=== PATIENT | female | born 1970 | race Caucasian/White ===

== ENCOUNTER → 2018-05-04 07:30 | Outpatient (CLI) | payer MEDICAID, SELFPAY ==
[2018-05-04 08:15] LABS: Basophils # 0.1 K/mm3 (0-0.2); Basophils % 0.6 % (0.1-2.0); Eosinophils # 0.8 K/mm3 (0.0-0.4); Eosinophils % 8.4 % (0.1-12.0); Hemoglobin 15.6 g/dL (12.2-16.2); Lymphocytes # 3.3 K/mm3 (0.7-4.5); Lymphocytes % 34.5 K/mm3 (10-50); Mean Corpuscular HGB Conc 33.2 g/dL (31.8-35.4); Mean Corpuscular Hemoglobin 31.2 pg (27.0-31.2); Mean Corpuscular Volume 93.8 fl (81-99); Mean Platelet Volume 7.1 fl (7.4-10.4); Monocytes # 0.6 K/mm3 (0.1-1.0); Monocytes % 5.8 % (1.7-9.3); Neutrophils # 4.9 K/mm3 (1.8-7.8); Neutrophils % 50.7 % (37.0-80.0); Platelet Count 336 K/mm3 (142-424); Red Blood Count 5.01 M/mm3 (4.20-5.40); Red Cell Distribution Width 13.6 % (11.5-17.5); White Blood Count 9.6 K/mm3 (4.8-10.8)
[2018-05-04 08:38] LABS: Alanine Aminotransferase 24 U/L (12-78); Albumin Level 3.7 gm/dL (3.4-5.0); Alkaline Phosphatase 78 U/L (46-116); Anion Gap 12.4 mEq/L (5-15); Aspartate Amino Transferase 12 U/L (15-37); Bilirubin,Direct 0.1 mg/dL (0.0-0.2); Bilirubin,Indirect 0.3 mg/dL (0.0-0.9); Bilirubin,Total 0.4 mg/dL (0.2-1.0); Blood Urea Nitrogen 7 mg/dL (7-18); Calcium 8.9 mg/dL (8.5-10.1); Carbon Dioxide 28 mmol/L (21.0-32.0); Chloride 106 mmol/L (98-107); Chol/HDL Ratio 2.8 (1-3.5); Cholesterol 127 mg/dL (140-200); Creatinine,Serum 0.85 mg/dL (0.55-1.02); Estimated Glomerular Filt Rate 72 ml/min (>60); GFR (African American) 87 ML/MIN (>60); Glucose 99 mg/dL (74-106); HDL Cholesterol 45 mg/dL (29-89); LDL Cholesterol 70 mg/dL (0-130); Potassium 4.4 mmoL/L (3.5-5.1); Sodium 142 mmol/L (136-145); Total Protein,Serum 6.9 gm/dL (6.4-8.2); Triglycerides 62 mg/dL (30-200); VLDL Cholesterol 12 mg/dL (0-40)
== END ==
PROVIDERS: PCP Nurse Practitioner Family; Visit Provider Internal Medicine Cardiovascular Disease
DX: I10 Essential (primary) hypertension (principal); E78.5 Hyperlipidemia, unspecified
CPT/HCPCS: 36415; 80048; 80061; 80076; 85025

== ENCOUNTER → 2019-05-21 07:51 | Outpatient (CLI) | payer MEDICAID, SELFPAY ==
[2019-05-21 08:54] LABS: Basophils # 0.1 K/mm3 (0-0.2); Basophils % 0.7 % (0.1-2.0); Eosinophils # 0.7 K/mm3 (0.0-0.4); Eosinophils % 7.2 % (0.1-12.0); Hematocrit 45.5 % (37.0-47.0); Hemoglobin 14.8 g/dL (12.2-16.2); Lymphocytes # 3.5 K/mm3 (0.7-4.5); Lymphocytes % 37.1 % (10-50); Mean Corpuscular HGB Conc 32.4 g/dL (31.8-35.4); Mean Corpuscular Hemoglobin 30.9 pg (27.0-31.2); Mean Corpuscular Volume 95.4 fl (81-99); Monocytes # 0.7 K/mm3 (0.1-1.0); Monocytes % 7.1 % (1.7-9.3); Neutrophils # 4.5 K/mm3 (1.8-7.8); Platelet Count 438 K/mm3 (142-424); Red Blood Count 4.77 M/mm3 (4.20-5.40); Red Cell Distribution Width 13.5 % (11.5-17.5); White Blood Count 9.4 K/mm3 (4.8-10.8)
[2019-05-21 09:38] LABS: Erythrocyte Sedimentation Rate 27 mm/hr (0-20)
[2019-05-21 10:11] LABS: Alanine Aminotransferase 22 U/L (12-78); Albumin Level 3.5 gm/dL (3.4-5.0); Albumin/Globulin Ratio 1.2 (1.1-1.8); Alkaline Phosphatase 71 U/L (46-116); Anion Gap 11.7 mEq/L (5-15); Aspartate Amino Transferase 16 U/L (15-37); Bilirubin,Total 0.3 mg/dL (0.2-1.0); Blood Urea Nitrogen 12 mg/dL (7-18); C-Reactive Protein 0.2 mg/dL (0.0-0.9); Calcium 8.6 mg/dL (8.5-10.1); Carbon Dioxide 27 mmol/L (21.0-32.0); Chloride 106 mmol/L (98-107); Cholesterol 140 mg/dL (140-200); Creatinine,Serum 0.77 mg/dL (0.55-1.02); Estimated Glomerular Filt Rate 80 ml/min (>60); Free T4 (Free Thyroxine) 1.01 ng/dl (0.76-1.46); GFR (African American) 97 ML/MIN (>60); Glucose 102 mg/dL (74-106); HDL Cholesterol 46 mg/dL (29-89); LDL Cholesterol 75 mg/dL (0-130); Potassium 4.7 mmoL/L (3.5-5.1); Sodium 140 mmol/L (136-145); Total Protein,Serum 6.5 gm/dL (6.4-8.2); Triglycerides 97 mg/dL (30-200); VLDL Cholesterol 19 mg/dL (0-40)
[2019-05-23 18:53] LABS: Vitamin D 25 Hydroxy 25.2 ng/mL (30.0-100.0)
[2019-05-24 20:13] LABS: Anti-Centromere B Antibodies <0.2 AI (0.0-0.9); Anti-Jo-1 <0.2 AI (0.0-0.9); Anti-Smith Antibody <0.2 AI (0.0-0.9); Antichromatin Antibodies <0.2 AI (0.0-0.9); Antiscleroderma-70 Antibodies <0.2 AI (0.0-0.9); RNP Antibodies <0.2 AI (0.0-0.9); Sjogren's Anti-SS-A <0.2 AI (0.0-0.9); Sjogren's Anti-SS-B <0.2 AI (0.0-0.9)
[2019-05-25 07:25] LABS: Anti-Cyclic Citrullinated Pept 3 units (0-19); Anti-DNA (DS) Ab Qn <1 IU/mL (0-9); RA Latex Turbid. 11.2 IU/mL (0.0-13.9)
[2019-05-25 12:14] LABS: PTT-LA 39.9 sec (0.0-51.9); dRVVT 36.4 sec (0.0-47.0)
[2019-05-25 14:29] LABS: Lupus Reflex Interpretation Comment: (.)
== END ==
PROVIDERS: Visit Provider Nurse Practitioner Family
DX: R53.83 Other fatigue (principal); M25.50 Pain in unspecified joint; F41.9 Anxiety disorder, unspecified; E55.9 Vitamin D deficiency, unspecified
CPT/HCPCS: 36415; 80053; 80061; 82652; 84439; 84443; 85025; 85613; 85651; 86140; 86200; 86225; 86235; 86431

== ENCOUNTER → 2019-08-22 13:43 | Outpatient (CLI) | payer OTHER, SELFPAY ==
--- NOTE | 2019-08-22 13:50 | CA_ITS ---
APPROVED REPORT Property Management Supervisor: CT Laterality: Bilateral Indications: montze Risk Factors Smoking Doppler Spectral Velocity Analysis ECA (R) 132.60/132.60 cm/s ECA (L) 133.70/123.50 cm/s dICA (R) 107.90/48.00 cm/s dICA (L) 145.80/70.20 cm/s Dina (R) 119.00/53.60 cm/s Dina (L) 141.80/43.50 cm/s pICA (R) 75.20/40.40 cm/s pICA (L) 226.40/103.20 cm/s dCCA (R) 83.10/28.40 cm/s dCCA (L) 95.10/32.60 cm/s pCCA (R) 106.20/31.40 cm/s pCCA (L) 104.40/29.90 cm/s Vert (R) 82.30/36.70 cm/s Vert (L) 35.80/35.80 cm/s Conclusion Duplex evaluation demonstrates stenosis of the right proximal internal carotid artery 20%. Duplex evaluation demonstrates stenosis of the left proximal internal carotid artery in the range of 70-99%. No change from 05/22/17. Duplex evaluation demonstrates alternating flow in the left Vertebral Artery. Duplex evaluation demonstrates antegrade flow of the right Vertebral Artery. Electronically signed by : Esteban Shahid MD 08/24/2019 18:59:43
== END ==
PROVIDERS: PCP Emergency Medicine; Visit Provider Internal Medicine Cardiovascular Disease
DX: I65.23 Occlusion and stenosis of bilateral carotid arteries (principal); E78.5 Hyperlipidemia, unspecified; I11.9 Hypertensive heart disease without heart failure; I25.10 Atherosclerotic heart disease of native coronary artery without angina pectoris
CPT/HCPCS: 93880

== ENCOUNTER → 2019-09-01 13:24 | Outpatient (CLI) | payer OTHER, SELFPAY ==
--- NOTE | 2019-09-01 13:25 | CT_ITS ---
Procedure: CT ANGIO NECK CLINICAL HISTORY: stenosis Carotid stenosis the COMPARISON: CA CAROTID DUPLEX BI from 08/22/2019 TECHNIQUE: IV Contrast: 100ml Optiray 350 Axial images obtained with sagittal and coronal reformats. All CT scans at the facility use one or more dose reduction, viz: automated exposure control, ma/kV adjustment per patient size (including targeted exams where dose is matched to indication, i.e. head), or iterative reconstruction technique. FINDINGS: The aortic arch and great vessels have an unremarkable appearance. Right carotid: Common carotid has an unremarkable appearance. There is a mild amount calcific plaque at the proximal aspect of the internal carotid on the right with no significant stenosis. No ulcerated plaque. There is some calcific plaque in the intracavernous portion of the ICA on the right. Left carotid: Soft plaque is present at the ostium of the left ICA causing approximately 50 percent stenosis. There is an ulceration at this area approximately 2 mm in depth The vertebral arteries have an unremarkable appearance. Intracranial circulation is remarkable for some mild calcific plaque within the cavernous portion of the ICAs. There is some tortuosity medially of the cavernous portion of the left ICA. IMPRESSION: 1. Approximately 50 percent stenosis of the the proximal aspect of the left ICA. Doppler evaluation over estimates the degree of stenosis. 2. There is an ulcerating plaque in the proximal left ICA. The depth of the ulcer is approximately 2 mm. 3. Atherosclerotic changes involve the cavernous portion of the ICAs bilaterally Dictated by: Esteban Shahid MD 09/02/2019 12:54 Electronically signed by Esteban Shahid MD in [place] 09/02/2019 12:54
== END ==
PROVIDERS: PCP Emergency Medicine; Visit Provider Nurse Practitioner Family
DX: I65.23 Occlusion and stenosis of bilateral carotid arteries (principal)
CPT/HCPCS: 70498; Q9967

== ENCOUNTER → 2020-02-28 13:22 | Outpatient (CLI) | payer OTHER, SELFPAY ==
--- NOTE | 2020-02-28 13:23 | CA_ITS ---
APPROVED REPORT EXAM: Comprehensive 2D, Doppler, and color-flow Echocardiogram Central Office Associate: Etta Akbar RDCS Ht: 5 ft 4 in Wt: 196lbs BSA: 1.94 BP: 163/93 mmHg Indications: SOA 2D Dimensions LVOT 1.84 cm (M/F) 1.5-2.5 M-Mode Dimensions RVDd 2.79 cm (0.9-2.6) LVDd 4.15 cm (3.5-5.7) LVDs 2.86 cm (3.5-5.7) IVSd 0.82 cm (0.6-1.1) PWd 0.68 cm (0.6-1.1) EF (Teich) 59.30% FS 31.10% EDV (Teich) 76.40 mL ESV (Teich) 31.10 mL LV Diastology E/A Ratio 0.77 Mitral Valve MV A Velocity 81.00 (40-130 cm/s) Left Ventricle Left atrium is mildly enlarged, left ventricle is normal size, mild concentric left ventricular hypertrophy, visually estimated ejection fraction 55% with no regional wall motion abnormality, grade 1 diastolic dysfunction seen without tissue Doppler evidence of raise left atrial pressure. Right Ventricle Right atrium and right ventricular mildly enlarged with normal contractility. Aortic Valve Aortic valve is minimally thickened and fibrosed, there is no aortic stenosis or aortic insufficiency. Mitral Valve Mitral valve is grossly normal, there is mild mitral regurgitation. Tricuspid Valve Tricuspid valve grossly normal, there is mild tricuspid regurgitation. Tricuspid regurgitation jet velocity is inadequate for calculation of the right ventricular systolic pressure. Pulmonic Valve Pulmonic valve is poorly visualized. Great Vessels Aortic root is normal size. Pericardium No significant pericardial effusion noted. Conclusion 1. Mildly enlarged left atrium, normal left ventricular size, mild concentric left ventricular hypertrophy, visually estimated ejection fraction 55% with no regional wall motion abnormality, grade 1 diastolic dysfunction seen without tissue Doppler evidence of raise left atrial pressure. 2. Mildly enlarged right ventricle with normal contractility. 3. Mild mitral and tricuspid regurgitation. 4. No significant pericardial effusion noted. Electronically signed by : Clayton Pham, 02/28/2020 22:24:18
== END ==
PROVIDERS: PCP Emergency Medicine; Visit Provider Internal Medicine Cardiovascular Disease
DX: R06.09 Other forms of dyspnea (principal); I11.9 Hypertensive heart disease without heart failure; I25.10 Atherosclerotic heart disease of native coronary artery without angina pectoris; R60.9 Edema, unspecified
CPT/HCPCS: 93306

== ENCOUNTER → 2020-03-07 09:45 | Outpatient (CLI) | payer OTHER, SELFPAY ==
[2020-03-07 11:10] LABS: Anion Gap 13.8 mEq/L (5-15); Blood Urea Nitrogen 15 mg/dl (7-17); Calcium 9.3 mg/dl (8.4-10.2); Carbon Dioxide 29 mmol/L (22.0-30.0); Chloride 100 mmol/L (98-107); Estimated Glomerular Filt Rate 90 ml/min (>60); GFR (African American) 109 ML/MIN (>60); Glucose 126 mg/dl (74-100); Potassium 4.8 mmoL/L (3.5-5.1); Sodium 138 mmol/L (136-145)
== END ==
PROVIDERS: Visit Provider Internal Medicine Cardiovascular Disease
DX: I25.10 Atherosclerotic heart disease of native coronary artery without angina pectoris (principal); R06.09 Other forms of dyspnea; R60.9 Edema, unspecified; E78.2 Mixed hyperlipidemia; I11.9 Hypertensive heart disease without heart failure; I65.23 Occlusion and stenosis of bilateral carotid arteries; Z78.9 Other specified health status
CPT/HCPCS: 36415; 80048

== ENCOUNTER → 2020-03-09 11:06 | Outpatient (CLI) | payer OTHER, SELFPAY ==
--- NOTE | 2020-03-09 11:20 | XR_ITS ---
PROCEDURE: XR FOOT LT MIN 3V weight-bearing views CLINICAL INDICATION: foot pain COMPARISON: No exams were available for comparison FINDINGS: No fracture or dislocation. No lytic or blastic change. There is normal mineralization. The joint spaces are well-preserved. No significant degenerative/arthritic changes. There is mild hallux valgus. No erosive changes evident. The plantar arch is normal. There is a tiny spur of the calcaneus at the insertion of the plantar tendon.. IMPRESSION: No acute findings. Dictated by: Dr. Lance Knox MD 03/09/2020 14:[address] Lance Knox MD in [place] 03/09/2020 14:49
== END ==
PROVIDERS: PCP Emergency Medicine; Visit Provider Nurse Practitioner Family
DX: M79.672 Pain in left foot (principal)
CPT/HCPCS: 73630

== ENCOUNTER → 2020-03-19 15:44 | Outpatient (CLI) | payer OTHER, SELFPAY ==
--- NOTE | 2020-03-19 15:46 | MM_ITS ---
PROCEDURE: MM DIG SCREENING MAMM BI W/CAD Digital Breast Tomosynthesis Included CLINICAL INDICATION: screening There is no personal or family history of breast cancer. There are no current complaints. COMPARISON: No exams were available for comparison TECHNIQUE: Standard CC and MLO images and 3D Tomosynthesis was obtained. R2 CAD reviewed. FINDINGS: Moderate fibroglandular densities are seen in the central portions of both breasts. The findings are bilateral and symmetrical. There is a benign-appearing calcification in each breast. There is no suspicious lesion and no suspicious microcalcifications. IMPRESSION: Mild to moderate breast density with no suspicious lesions seen BI-RAD Category: 2 Benign Finding(s) FOLLOW-UP: 1YR 1 Year Follow-up (A letter has been sent to the patient regarding results of the study.) Dictated by: Dr. Lance Knox MD 03/22/2020 06:[address] Lnace Knox MD in [place] 03/22/2020 06:58
== END ==
PROVIDERS: PCP Emergency Medicine; Visit Provider Nurse Practitioner Family
DX: Z12.31 Encounter for screening mammogram for malignant neoplasm of breast (principal)
CPT/HCPCS: 77063; 77067

== ENCOUNTER → 2020-04-14 09:18 | Outpatient (CLI) | payer OTHER, SELFPAY ==
[2020-04-14 10:29] LABS: Chloride 104 mmol/L (98-107); Potassium 4.6 mmoL/L (3.5-5.1); Sodium 136 mmol/L (136-145)
[2020-04-14 10:32] LABS: Anion Gap 14.6 mEq/L (5-15); Blood Urea Nitrogen 29 mg/dl (7-17); Carbon Dioxide 22 mmol/L (22.0-30.0); Estimated Glomerular Filt Rate 77 ml/min (>60); GFR (African American) 93 ML/MIN (>60); Glucose 109 mg/dl (74-100)
== END ==
PROVIDERS: Visit Provider Internal Medicine Cardiovascular Disease
DX: M19.071 Primary osteoarthritis, right ankle and foot (principal); M19.072 Primary osteoarthritis, left ankle and foot; E66.9 Obesity, unspecified; M20.11 Hallux valgus (acquired), right foot; M20.12 Hallux valgus (acquired), left foot; M21.6X1 Other acquired deformities of right foot; M21.6X2 Other acquired deformities of left foot; M72.2 Plantar fascial fibromatosis; M77.32 Calcaneal spur, left foot; M79.673 Pain in unspecified foot
CPT/HCPCS: 36415; 80048

== ENCOUNTER → 2020-04-30 09:53 | Outpatient (CLI) | payer OTHER, SELFPAY ==
--- NOTE | 2020-04-30 10:01 | US_ITS ---
APPROVED REPORT Exam Type: Lower Extremity Segmental Pressures Axle And Frame Mechanic: Etta Akbar RDCS Indications Claudication: Rest Pain: Edema Risk Factors History of Smoking Pressures/Indices Right Indices Left Indices Brachial 136.00 mmHg Brachial 98.00 mmHg Low Thigh 100.00 mmHg 0.74 Low Thigh 111.00 mmHg 0.82 Calf 99.00 mmHg 0.73 Calf 118.00 mmHg 0.87 Ankle(PT) 110.00 mmHg 0.81 Ankle(PT) 128.00 mmHg 0.94 Ankle(DP) 119.00 mmHg 0.88 Ankle(DP) 111.00 mmHg 0.82 Digit 119.00 mmHg 0.88 Digit 122.00 mmHg 0.90 Findings normal pulses and waveforms right brachial pressure 136 left brachial pressure 98 R JOSR .9 L JOSR .9 R TBI .9 L TBI .9 Conclusion normal pulses and waveforms right brachial pressure 136 left brachial pressure 98 R JOSR .9 L JOSR .9 R TBI .9 L TBI .9 Acceptable bilateral JOSR Electronically signed by : Esteban Shahid MD 04/30/2020 16:04:52
== END ==
PROVIDERS: PCP Emergency Medicine; Visit Provider Internal Medicine Cardiovascular Disease
DX: I65.23 Occlusion and stenosis of bilateral carotid arteries (principal); I73.9 Peripheral vascular disease, unspecified; E78.2 Mixed hyperlipidemia; I11.9 Hypertensive heart disease without heart failure; I25.10 Atherosclerotic heart disease of native coronary artery without angina pectoris
CPT/HCPCS: 93923

== ENCOUNTER → 2021-05-01 08:59 | Outpatient (CLI) | payer OTHER, SELFPAY ==
[2021-05-01 09:40] LABS: Hemoglobin A1C 5.9 % (4.0-6.0)
[2021-05-01 09:47] LABS: Basophils % 0.5 % (0.1-2.0); Eosinophils % 0.2 % (0.1-12.0); Hematocrit 29.9 % (37.0-47.0); Hemoglobin 8.3 g/dL (12.2-16.2); Lymphocytes % 17.8 % (10-50); Mean Corpuscular HGB Conc 27.7 g/dL (31.8-35.4); Mean Corpuscular Hemoglobin 24.5 pg (27.0-31.2); Mean Corpuscular Volume 88.4 fl (81-99); Mean Platelet Volume 11.4 fl (7.4-10.4); Monocytes # 1.3 K/mm3 (0.1-1.0); Monocytes % 22.6 % (1.7-9.3); Neutrophils # 3.5 K/mm3 (1.8-7.8); Neutrophils % 58.9 % (37.0-80.0); Platelet Count 234 K/mm3 (142-424); Red Blood Count 3.38 M/mm3 (4.20-5.40); Red Cell Distribution Width 15.2 % (11.5-17.5); White Blood Count 5.9 K/mm3 (4.8-10.8)
[2021-05-01 09:48] LABS: MANUAL DIFFERENTIAL MANUAL DIFFERENTIAL (MANUAL DIFF)
[2021-05-01 10:16] LABS: Eosinophils % 10 % (0-3); Lymphocytes % 22 % (10-50); Monocytes % 4 % (2-9); Neutrophils % 64 % (42-76); Nucleated Red Blood Cells 2; Total Cells Counted 100
[2021-05-01 10:17] LABS: Hypochromasia 2+; Macrocytosis 1+; Platelet Estimate Normal
[2021-05-01 10:33] LABS: Erythrocyte Sedimentation Rate 18 mm/hr (0-20)
[2021-05-01 12:16] LABS: Chloride 105 mmol/L (98-107); Potassium 4.2 mmoL/L (3.5-5.1); Sodium 138 mmol/L (136-145)
[2021-05-01 12:19] LABS: Alanine Aminotransferase 23 U/L (12-78); Albumin Level 3.7 g/dl (3.5-5.0); Albumin/Globulin Ratio 1.4 (1.1-1.8); Alkaline Phosphatase 113 U/L (38-126); Anion Gap 12.2 mEq/L (5-15); Aspartate Amino Transferase 27 U/L (14-36); Bilirubin,Total 0.2 mg/dl (0.2-1.3); Blood Urea Nitrogen 14 mg/dl (7-17); Carbon Dioxide 25 mmol/L (22.0-30.0); Estimated Glomerular Filt Rate 89 ml/min (>60); GFR (African American) 108 ML/MIN (>60); Globulin 2.7 g/dL (1.3-3.2); Total Protein,Serum 6.4 g/dl (6.3-8.2)
[2021-05-01 12:20] LABS: Calcium 8.9 mg/dl (8.4-10.2); Glucose 111 mg/dl (74-100)
[2021-05-01 12:52] LABS: Thyroid Stimulating Hormone 2.49 uIU/mL (0.465-4.68)
[2021-05-01 13:10] LABS: Vitamin B12 345 pg/mL (239-931)
[2021-05-02 17:32] LABS: Albumin 3.2 g/dL (2.9-4.4); Alpha-1-Globulin 0.3 g/dL (0.0-0.4); Alpha-2-Globulin 0.9 g/dL (0.4-1.0); Angiotensin Converting Enzyme 28 U/L (14-82); Gamma Globulin 0.9 g/dL (0.4-1.8); Protein, Total 6.3 g/dL (6.0-8.5)
[2021-05-21 10:36] LABS: Antinuclear Antibodies (ANA) NEGATIVE
== END ==
PROVIDERS: Visit Provider Specialist
DX: G62.9 Polyneuropathy, unspecified (principal); R20.8 Other disturbances of skin sensation
CPT/HCPCS: 36415; 80053; 82164; 82607; 82746; 83036; 84155; 84165; 84443; 85007; 85025; 85651; 86038; 86225; 86235; 86334

== ENCOUNTER → 2021-05-02 13:58 | Outpatient (CLI) | payer OTHER, SELFPAY ==
[2021-05-02 14:16] LABS: Iron 117 ug/dL (37-170)
[2021-05-02 14:26] LABS: Total Iron Binding Capacity 360 ug/dL (265-497)
[2021-05-02 14:51] LABS: Ferritin 19.9 ng/ml (6.24-137)
[2021-05-04 12:55] LABS: FSH 12.2 mIU/mL (.)
== END ==
PROVIDERS: Visit Provider Family Medicine
DX: D64.9 Anemia, unspecified (principal)
CPT/HCPCS: 82670; 82728; 83001; 83540; 83550

== ENCOUNTER → 2021-05-14 09:58 | Outpatient (CLI) | payer OTHER, SELFPAY ==
[2021-05-14 11:37] LABS: Hematocrit 45.1 % (37.0-47.0); Hemoglobin 14.8 g/dL (12.2-16.2)
== END ==
PROVIDERS: PCP Emergency Medicine; Referring Provider Surgery; Visit Provider Specialist
DX: G47.30 Sleep apnea, unspecified (principal); I25.10 Atherosclerotic heart disease of native coronary artery without angina pectoris; I11.9 Hypertensive heart disease without heart failure; D64.9 Anemia, unspecified
CPT/HCPCS: 85014; 85018; 95806

== ENCOUNTER → 2021-05-15 11:42 | Outpatient (CLI) | payer OTHER, SELFPAY ==
[2021-05-15 12:19] LABS: Occult Blood,Stool Negative (Negative)
== END ==
PROVIDERS: Visit Provider Surgery
DX: D64.9 Anemia, unspecified (principal)
CPT/HCPCS: 82272; G0328

== ENCOUNTER → 2021-05-21 08:45 | Outpatient (CLI) | payer OTHER, SELFPAY | PROVIDERS: Visit Provider Surgery | DX: Z01.812 Encounter for preprocedural laboratory examination (principal); Z11.52 Encounter for screening for COVID-19; U07.1 COVID-19; Z13.810 Encounter for screening for upper gastrointestinal disorder; Z12.11 Encounter for screening for malignant neoplasm of colon; D64.9 Anemia, unspecified | CPT/HCPCS: U0003 ==

== ENCOUNTER → 2021-06-05 10:23 | Outpatient (CLI) | payer OTHER, SELFPAY | PROVIDERS: PCP Surgery; Visit Provider Nurse Practitioner | DX: Z20.822 Contact with and (suspected) exposure to COVID-19 (principal) | CPT/HCPCS: C9803; U0003; U0005 ==

== ENCOUNTER 2021-06-06 06:20 | Day surgery (SDC) | payer OTHER, SELFPAY ==
[2021-05-15 13:17] VITALS: BMI 31.7
[2021-06-06 06:37] VITALS: BP 115/68; PULSE 107; RESP 18; TEMP 37.1; O2SAT 98
[2021-06-06 06:45] LABS: Urine Pregnancy, HCG Qual. Negative (Negative)
[2021-06-06 07:25] VITALS: O2SAT 97
--- NOTE | 2021-06-06 08:23 | P.PCN_ITS ---
- Procedure: Date: 06/06/21 Patient Date of :: 1970 Procedure Performed:: Esophagogastroduodenoscopy with biopsy Colonoscopy with polypectomy Indications:: Anemia Performing Provider:: Chris Varma MD Referring Provider:: . Sedation:: Monitored anesthesia care Procedure:: After informed consent was obtained the patient was taken to the endoscopy suite. Sedation ensued after the patient was transferred to the left lateral decubitus position. Pulse, blood pressure, and oxygen saturation were monitored throughout the procedure. The endoscope was advanced beyond the duodenal bulb. Retroflexion within the gastric lumen was accomplished. The gastroscope was carefully removed. Digital rectal exam revealed no significant abnormality. T he colonoscope was placed in position. The entire colon was evaluated. The colonoscope was carefully removed and the patient was transferred to recovery in stable condition. Please see findings and specimens below for detail. Findings:: Gastroesophageal junction at 35 cm Minimal Schatzki ring Streaking gastritis No obvious ulceration or signs of recent/active hemorrhage Bowel preparation moderate to poor Significant spasticity Moderate tortuosity Multiple polyps (see specimens) Specimens:: Antral biopsy Cecal polyp (snare) Hepatic flexure polyp Proximal transverse colon polyp (snare) Adjacent polyps 70 cm Polyp at 60 cm (snare) Polyp at 40 cm (snare) Recommendations:: Will likely require UGI/SBFT followed by capsule endoscopy for further evaluation of anemia Timing of repeat colonoscopy is pending pathology but will likely be between 1-2 years secondary to limited bowel preparation, spasticity/tortuosity, and size/nature/number of polyps. Complications:: No immediate Estimated blood obtained (mL): 1
[2021-06-06 08:24] VITALS: BP 140/70; PULSE 90; RESP 20; TEMP 36.2; O2SAT 94
[2021-06-06 08:34] VITALS: BP 113/51; PULSE 89; RESP 18; O2SAT 94
[2021-06-06 08:45] VITALS: BP 82/46; PULSE 82; RESP 18; O2SAT 97
[2021-06-06 08:56] VITALS: BP 104/65; PULSE 85; RESP 18; O2SAT 97
== END 2021-06-06 08:59 | disposition home or self-care (01) ==
LOC: OUTP 06:22
PROVIDERS: PCP Emergency Medicine; Visit Provider Surgery
PROC: 0DJ08ZZ Inspection of Upper Intestinal Tract, Via Natural or Artificial Opening Endoscopic (ICD-10-PCS; CPT 43235; principal; 2021-06-06 07:30)
DX: D64.9 Anemia, unspecified (principal); K22.2 Esophageal obstruction; K29.60 Other gastritis without bleeding; K63.5 Polyp of colon; Z79.82 Long term (current) use of aspirin; Z79.899 Other long term (current) drug therapy; I25.10 Atherosclerotic heart disease of native coronary artery without angina pectoris; E78.5 Hyperlipidemia, unspecified; I10 Essential (primary) hypertension; F41.9 Anxiety disorder, unspecified
CPT/HCPCS: 43239; 45385; 81025

== ENCOUNTER → 2021-07-08 08:34 | Outpatient (CLI) | payer OTHER, SELFPAY ==
--- NOTE | 2021-07-08 08:43 | FL_ITS ---
PROCEDURE: FL SMALL BOWEL FOLLOW THROUGH CLINICAL INDICATION: anemia COMPARISON: No exams were available for comparison FINDINGS: Digital Watch Assembler exam demonstrates mild lumbar scoliosis convex left. Bilateral tubal ligation clips are present. The small bowel has an unremarkable appearance. No dilatation, mass, or mucosal abnormalities are evident. Spot views of the terminal ileum are unremarkable. There is normal transit time Fluoroscopy time: 32 seconds. IMPRESSION: Unremarkable small bowel follow-through. Dictated by: Esteban Shahid MD 07/08/2021 11:35 Esteban Shahid MD in [place] 07/08/2021 11:35
[2021-07-08 09:09] LABS: Basophils # 0.1 K/mm3 (0-0.2); Basophils % 0.5 % (0.1-2.0); Eosinophils # 0.6 K/mm3 (0.0-0.4); Eosinophils % 3.7 % (0.1-12.0); Hematocrit 49.5 % (37.0-47.0); Hemoglobin 16.1 g/dL (12.2-16.2); Lymphocytes # 2.6 K/mm3 (0.7-4.5); Lymphocytes % 15.2 % (10-50); Mean Corpuscular HGB Conc 32.5 g/dL (31.8-35.4); Mean Corpuscular Hemoglobin 31.1 pg (27.0-31.2); Mean Corpuscular Volume 95.6 fl (81-99); Mean Platelet Volume 7.5 fl (7.4-10.4); Monocytes # 0.9 K/mm3 (0.1-1.0); Monocytes % 5.3 % (1.7-9.3); Neutrophils % 75.3 % (37.0-80.0); Platelet Count 404 K/mm3 (142-424); Red Blood Count 5.18 M/mm3 (4.20-5.40); Red Cell Distribution Width 13.8 % (11.5-17.5); White Blood Count 17.3 K/mm3 (4.8-10.8)
[2021-07-08 09:13] LABS: MANUAL DIFFERENTIAL MANUAL DIFFERENTIAL (MANUAL DIFF)
[2021-07-08 11:29] LABS: Eosinophils % 1 % (0-3); Hypochromasia 1+; Lymphocytes % 16 % (10-50); Macrocytosis 2+; Monocytes % 2 % (2-9); Neutrophils % 81 % (42-76); Platelet Estimate Normal; Total Cells Counted 100
== END ==
PROVIDERS: Family Medicine; PCP Emergency Medicine; Visit Provider Surgery
DX: D64.9 Anemia, unspecified (principal)
CPT/HCPCS: 36415; 74250; 85007; 85025

== ENCOUNTER → 2021-12-18 12:14 | Outpatient (CLI) | payer OTHER, SELFPAY ==
--- NOTE | 2021-12-18 | CA_ITS ---
APPROVED REPORT Exam: Pharmacologic Technologist: Karen Pacheco, Ht: 5 ft 4 in Wt: 191 lbs BSA: 1.92 m2 HR: 93 bpm BP: 135/81 mmHg Rhythm: NSR, ST-T abns inferiorly and laterally, low voltage QRS Medical History Medical History: HTN, Hyperlipidemia, Smoking Medications: Omeprazole,,,,, Metoprolol,,,,, Asa,,,,, Gabapentin,,,,, Losartan,,,,, HCTZ,,,,, CloPIdogrel,,,,, Venlafaxine,,,,, SpirOnolactone,,,,, AtorvaASTATIN,,,,, Cardiac Risk Factors: HTN, Hyperlipidemia, FHX of CAD, Smoking Stress Test Details Test: LEXISCAN HR Resting HR: 94 bpm Max Heart Rate (APMHR): 171.171389 bpm Max HR Achieved: 131 bpm Target HR (85% APMHR): 145.368870 bpm % of APMHR: 76.61 Recovery HR: 112 bpm BP Resting BP: 135/81 mmHg Max BP: 145/75 mmHg Recovery BP: 145.0/75.0 mmHg ECG Resting ECG: NSR, ST-T abns inferiorly and laterally, low voltage QRS Clinical Exercise duration: 04:01 min Highest Stage Achieved: Stress ECG Conclusion During lexiscan pt experinced mild SOA, nausea, and lightheaded. No CP noted. No arrhythmias noted. Exaggeration of baseline ST-T abns. Non diagnostic lexiscan stress. Myoview images reported separately. Electronically signed by : Clayton Pham MD 12/18/2021 19:13:39
--- NOTE | 2021-12-18 12:14 | NM_ITS ---
APPROVED REPORT Exam: Nuclear Stress Test Indication: SOB, Palpitations, HTN, High cholesterol, Tobacco use, Family history Patient Location: Outpatient Stress Tech: Jenny Roberson [place] Tech:KEVIN Whaley RT (R)(N)(M) Ht: 5 ft 4 in Wt: 191 lbs Bra Size: 38C HR: 93 bpm BP: 135/81 mmHg BSA: 1.92 m2 BMI: 32.7 History: SOB, Palpitations, HTN, High cholesterol, Tobacco use, Family history Procedure: Patient received a 0.4 mg of intravenous Lexiscan, resting heart rate 93 bpm, resting blood pressure 135/81 mmHg, with Lexiscan maximum heart rate achived was 131 bpm which is Less than 85 % of the maximum predicted heart rate and blood pressure was 124/77 mmHg. With Lexiscan, patient denied any complaint of chest pain. Electrocardiogram Resting electrocardiogram shows sinus rhythm nonspecific ST-T changes, with Lexiscan there is less than 1.[address] segment depression noted from the baseline EKG. The EKG portion of the Lexiscan is nondiagnostic. Cardiac Stress and Resting SPECT Images: Cardiac Stress and Resting SPECT images were obtained using technetium 99m Myoview 30.7 mCi stress and 10.30 mCi at rest. Gated SPECT analysis of segmental wall motion and calculation of the ejection fraction also done. Cardiac stress and rest SPECT images show uniform myocardial activity without segmental perfusion abnormality, however there is marked transient ischemic dilatation of the left ventricle seen. Computer derived ejection fraction is 52% with no regional wall motion abnormality, right ventricle is mildly enlarged with normal contractility. Conclusion: 1. The EKG portion of the Lexiscan is nondiagnostic. 2. No scintigraphic evidence of reversible ischemia seen, however there is marked transient ischemic dilatation of the left ventricle is seen, raising the concerns for presence of balanced ischemia and multivessel coronary artery disease, compared to ejection fraction 52% with no regional wall motion abnormality. Right ventricle is mildly enlarged with normal contractility. 3. Abnormal Lexiscan Myoview study. Electronically signed by : Clayton Pham MD 12/20/2021 09:35:14
== END ==
PROVIDERS: PCP Family Medicine; Visit Provider Nurse Practitioner Family
DX: R06.09 Other forms of dyspnea (principal); I25.10 Atherosclerotic heart disease of native coronary artery without angina pectoris; I11.9 Hypertensive heart disease without heart failure; E78.2 Mixed hyperlipidemia; I65.23 Occlusion and stenosis of bilateral carotid arteries; R60.9 Edema, unspecified; Z78.9 Other specified health status
CPT/HCPCS: 78452; 93017; A9502; J2785

== ENCOUNTER → 2022-01-04 09:31 | Outpatient (CLI) | payer OTHER, SELFPAY ==
[2022-01-04 11:02] LABS: Basophils # 0.3 K/mm3 (0-0.2); Basophils % 2.4 % (0.1-2.0); Eosinophils # 0.6 K/mm3 (0.0-0.4); Eosinophils % 5.9 % (0.1-12.0); Hematocrit 47.7 % (37.0-47.0); Hemoglobin 15.1 g/dL (12.2-16.2); Lymphocytes # 2.2 K/mm3 (0.7-4.5); Lymphocytes % 20.2 % (10-50); Mean Corpuscular HGB Conc 31.6 g/dL (31.8-35.4); Mean Corpuscular Hemoglobin 29.4 pg (27.0-31.2); Mean Corpuscular Volume 92.9 fl (81-99); Mean Platelet Volume 8.3 fl (7.4-10.4); Monocytes # 0.7 K/mm3 (0.1-1.0); Monocytes % 6.3 % (1.7-9.3); Neutrophils # 6.9 K/mm3 (1.8-7.8); Neutrophils % 65.2 % (37.0-80.0); Platelet Count 476 K/mm3 (142-424); Red Blood Count 5.14 M/mm3 (4.20-5.40); Red Cell Distribution Width 15.7 % (11.5-17.5); White Blood Count 10.7 K/mm3 (4.8-10.8)
[2022-01-04 11:50] LABS: Anion Gap 12.6 mEq/L (5-15); Blood Urea Nitrogen 16 mg/dl (7-17); Carbon Dioxide 25 mmol/L (22.0-30.0); Chloride 104 mmol/L (98-107); Estimated Glomerular Filt Rate 106 ml/min (>60); GFR (African American) 129 ML/MIN (>60); Glucose 112 mg/dl (74-100); Potassium 4.6 mmoL/L (3.5-5.1); Sodium 137 mmol/L (136-145)
== END ==
PROVIDERS: PCP Emergency Medicine; Visit Provider Nurse Practitioner Family
DX: Z01.812 Encounter for preprocedural laboratory examination (principal); Z11.52 Encounter for screening for COVID-19; R06.09 Other forms of dyspnea; I25.10 Atherosclerotic heart disease of native coronary artery without angina pectoris; I11.9 Hypertensive heart disease without heart failure; E78.2 Mixed hyperlipidemia; G25.81 Restless legs syndrome; I63.9 Cerebral infarction, unspecified; I65.23 Occlusion and stenosis of bilateral carotid arteries; R60.9 Edema, unspecified; R94.31 Abnormal electrocardiogram [ECG] [EKG]; R94.39 Abnormal result of other cardiovascular function study; F17.200 Nicotine dependence, unspecified, uncomplicated; Z78.9 Other specified health status
CPT/HCPCS: 36415; 80048; 85025; C9803; U0003; U0005

== ENCOUNTER 2022-01-06 08:29 | Day surgery (SDC) | payer OTHER, SELFPAY ==
[2022-01-06] VITALS (11 sets, daily range): BP systolic 78–141; BP diastolic 55–81; PULSE 70–100; RESP 14–18; TEMP 36.7; O2SAT 90–94; BMI 32.8
--- NOTE | 2022-01-06 07:04 | IR_ITS ---
APPROVED REPORT Patient Location: Outpatient Business Development Executive: KEVIN Brewster RT (R) PROCEDURES Left heart catheterization Left ventriculogram Selective coronary angiogram INDICATION Abnormal Myoview, Angina pectoris Informed consent was obtained prior to the procedure. COMPLICATIONS None Estimated Blood Loss: Less than 10 mls TECHNIQUE One percent lidocaine used to anesthetize the right anterior aspect of the wrist. The right radial artery was accessed via the Seldinger technique. A 6 Macedonian sheath was placed in the right radial artery. 2.5 mg of verapamil, 800 mcg of nitroglycerin, 1mg Lidocaine and 5000 U Heparin were given through the arterial sheath. The papa catheter was also used to perform left heart catheterization, left ventriculogram and selective coronary angiogram. At the end of the procedure the sheath was removed good hemostasis was achieved using Traclet band, patient was transferred to the postop holding area in stable condition. ANGIOGRAPHIC RESULTS The left main artery Normal The left anterior descending artery Normal The circumflex artery Codominant normal The right coronary artery Codominant normal The CHE ventriculogram reveals Normal 65% The left ventricular end-diastolic pressure 10 to 15 mmHg IMPRESSION Normal coronary arteries Normal ejection fraction Borderline elevated LVEDP PLAN 1. Medical management Electronically signed by : Betito Vera MD 01/06/2022 12:07:55
[2022-01-06 08:53] LABS: HCG Qualitative, Serum Negative (Negative)
== END 2022-01-06 14:40 | disposition home or self-care (01) ==
LOC: CATHLAB 08:30
PROVIDERS: PCP Family Medicine; Visit Provider Internal Medicine
DX: I25.118 Atherosclerotic heart disease of native coronary artery with other forms of angina pectoris (principal); E78.2 Mixed hyperlipidemia; F17.210 Nicotine dependence, cigarettes, uncomplicated; I11.9 Hypertensive heart disease without heart failure; I65.23 Occlusion and stenosis of bilateral carotid arteries; R94.31 Abnormal electrocardiogram [ECG] [EKG]; R94.39 Abnormal result of other cardiovascular function study
CPT/HCPCS: 84703; 93458; 99152; C1725; C1769; J1644; Q9967

== ENCOUNTER → 2022-01-21 15:44 | Outpatient (CLI) | payer OTHER, SELFPAY | PROVIDERS: Visit Provider Nurse Practitioner Family | DX: N39.0 Urinary tract infection, site not specified (principal); B95.4 Other streptococcus as the cause of diseases classified elsewhere | CPT/HCPCS: 87086; 87088; 87186 ==

== ENCOUNTER 2022-03-04 15:29 | Emergency (ER) | payer OTHER, SELFPAY ==
[2022-03-04 15:54] VITALS: BP 120/76; PULSE 85; RESP 18; TEMP 36.6; O2SAT 96; BMI 32.5
--- NOTE | 2022-03-04 16:09 | HMH.EDUTC ---
[facility] Disposition Clinical Impression: Dental abscess Disposition: Home, Self-Care Condition on Discharge: Good Instructions: Tooth Abscess, Amoxicillin and Clavulanic Acid Additional Instructions: Use dental [facility] Follow up with Dentist for further evaluation and treatment Return if needed Take oral antibiotics as prescribed Straight to ER if any life threatening symptoms Prescriptions: Amoxicillin/Potassium Clav [Amox-Clav 875-125 mg Tablet] 1 tab PO BID #20 tab Transmission Status: Pending to [facility] Referrals: Camilo Lopez MD [Primary Care Provider] - As needed Time of Disposition: 16:16 Medical Decision Making - Marky Inquiry Pt receiving controlled substance: No Marky was queried for this patient: No Vital Signs: 03/04/22 15:54 Temperature 97.8 F Temperature Source Oral Pulse Rate [Left Radial] 85 Respiratory Rate 18 Blood Pressure [Right Arm] 120/76 Blood Pressure Mean [Right Arm] 90 02 Sat by Pulse Oximetry 96 Orders (Tests/Meds): ED MEDICATIONS Discontinued Medications Generic Name Dose Route Start Last Admin Trade Name Ben PRN Reason Stop Dose Admin Benzocaine/Butamben/Tetracaine HCl 1 gm 03/04/22 16:04 Tetracaine/Benzocaine/Butamben 56 Gm [place] TP 03/04/22 16:05 ONCE ONE Lidocaine HCl 15 ml 03/04/22 16:04 Lidocaine 2% Viscous Abbi 15ml Udc PO 03/04/22 16:05 ONCE ONE [facility] HPI - General Stated complaint: lump on mouth Time Seen by Provider: 03/04/22 16:09 Description of Symptoms (Recalled from Triage Doc. by RN): patient comes in today for an abcessed tooth. it is located on the bottom right, it began thursday night HEENT Symptoms (Recalled from RN notes): Yes Resp Symptoms (Recalled from RN notes): No Skin Symptoms (Recalled from RN notes): No MS Symptoms (Recalled from RN notes): No Functional Status (Recalled from RN notes): wnl - History of Present Illness Provider Complaint: Patient states that she has a bad tooth on her right lower tooth States that for the last couple of days she has been having swelling and pain around tooth that has continued to get worse States that she called trying to get into a dentist but they couldnt get her in for a couple weeks and told her to come in here - Related Data Home Medications Medication Instructions Recorded Confirmed aspirin 81 mg tablet,delayed 81 mg PO DAILY tab 12/22/17 02/21/22 release Previous Rx's Medication Instructions Recorded omeprazole 40 mg capsule,delayed 40 mg PO DAILY #90 cap 06/12/21 release venlafaxine 37.5 mg 37.5 mg PO DAILY #90 cap 08/26/21 capsule,extended release 24 hr gabapentin 300 mg capsule 300 mg PO BID #90 cap 08/27/21 hydrochlorothiazide 12.5 mg tablet See Rx Instructions .ROUTE 11/25/21 .COMPLEX #90 tablet atorvastatin 80 mg tablet See Rx Instructions .ROUTE 12/12/21 .COMPLEX #90 each nicotine 1 patch TRANSDERMA Q24H #56 patch 12/12/21 21mg/24hr-14mg/24hr-7mg/24hr daily transderm patches,sequentl clopidogrel 75 mg tablet See Rx Instructions .ROUTE 01/01/22 .COMPLEX #30 tab spironolactone 25 mg tablet See Rx Instructions .ROUTE 01/01/22 .COMPLEX #30 tab losartan 25 mg tablet 25 mg PO DAILY #30 tab 01/21/22 metoprolol succinate 100 mg 100 mg PO DAILY #30 tab 01/21/22 tablet,extended release 24 hr azithromycin 250 mg tablet 250 mg PO QDAY 5 Days #6 tab 02/21/22 prednisone 20 mg tablet 20 mg PO BID #10 tab 02/21/22 Amoxicillin/Potassium Clav 1 tab PO BID #20 tab 03/04/22 [Amox-Clav 875-125 mg Tablet] Allergies Allergy/AdvReac Type Severity Reaction Status Date / Time No Known Allergies Allergy Verified 03/04/22 15:57 - Worker's Comp Is this a Worker's Comp case?: No [facility] History - Hepatitis A Screen Attestation statement:: This patient has been screened for Hepatitis A risk factors. I have reviewed the patient's past medical history: Yes Medical History: Reports:: Anxiet
[2022-03-04 16:20] VITALS: BP 120/76; PULSE 85; RESP 18; TEMP 36.6
== END 2022-03-04 16:22 | disposition home or self-care (01) ==
PROVIDERS: Emergency Provider Nurse Practitioner; PCP Emergency Medicine
DX: K04.7 Periapical abscess without sinus (principal); R94.31 Abnormal electrocardiogram [ECG] [EKG]; R00.0 Tachycardia, unspecified; I25.119 Atherosclerotic heart disease of native coronary artery with unspecified angina pectoris; I65.29 Occlusion and stenosis of unspecified carotid artery; E78.5 Hyperlipidemia, unspecified; E11.9 Type 2 diabetes mellitus without complications; M19.90 Unspecified osteoarthritis, unspecified site; G25.81 Restless legs syndrome; F41.9 Anxiety disorder, unspecified; F32.A Depression, unspecified; F17.210 Nicotine dependence, cigarettes, uncomplicated; Z79.02 Long term (current) use of antithrombotics/antiplatelets; Z79.52 Long term (current) use of systemic steroids; Z79.899 Other long term (current) drug therapy; Z82.49 Family history of ischemic heart disease and other diseases of the circulatory system; Z83.438 Family history of other disorder of lipoprotein metabolism and other lipidemia; Z83.3 Family history of diabetes mellitus
CPT/HCPCS: 99213; G0463

== ENCOUNTER 2022-04-27 11:03 | Emergency (ER) | payer OTHER, SELFPAY ==
[2022-04-27 11:15] VITALS: BP 123/76; PULSE 80; RESP 24; TEMP 36.8; O2SAT 100; BMI 30.5
[2022-04-27 11:29] LABS: UTC Strep Screen (Rapid) Positive (Negative)
--- NOTE | 2022-04-27 11:32 | HMH.EDUTC ---
[facility] Disposition Clinical Impression: Strep throat Disposition: Home, Self-Care Condition on Discharge: Good Instructions: Strep Throat, DI for Strep Throat, Azithromycin Additional Instructions: *Monitor Temp, Over the counter Motrin or Tylenol as directed/as needed Tylenol every 4 hours and Motrin every 6 hours (as long as your family doctor has told you that you can take it) for fever or pain. and straight to ER if unable to lower temp less than 101.0 after medication given *Warm salt water gargles may help to soothe the throat *Throat Lozenges *Warm fluids like tea with honey may help to soothe the throat *Sleep elevated *Humidifier/Vaporizer *If you did not take Penicillin shot or was unable to, start taking antibiotic immediately and make sure that you take it for the FULL length of time although you should start to feel better in 24-48 hours *change toothbrush and toothpaste 24-48 hours after starting to take antibiotics so you do not reinfect yourself Monitor Temp. Tylenol and/or Ibuprofen as needed. ER if fever is no less than 101 despite alternating Tylenol and Ibuprofen * Encourage fluids, water, Gatorade, powerade, pedialyte if /toddler/or child *Cold fluids, popsicles and ice cream may feel good on his throat Follow up IMMEDIATELY for new or worsening symptoms or no Noticeable improvement over the next 48-72 hours. 911 for difficulty breathing or swallowing Prescriptions: Benzonatate [Benzonatate 100mg cap] 100 mg PO Q8HP PRN #15 cap PRN Reason: Cough Transmission Status: Received by [facility] predniSONE [Prednisone 20mg Tab] 20 mg PO BID 5 Days #10 tab Transmission Status: Received by [facility] Azithromycin [Z-Shahzad 250mg Tab] 250 mg PO DIRECTED #6 tab Transmission Status: Received by [facility] Referrals: Camilo Lopez MD [Primary Care Provider] - As needed Medical Decision Making - Marky Inquiry Pt receiving controlled substance: No Marky was queried for this patient: No Vital Signs: 04/27/22 11:15 04/27/22 11:44 Temperature 98.2 F 98.2 F Temperature Source Oral Pulse Rate 80 Pulse Rate [Right Brachial] 80 Respiratory Rate 24 24 Blood Pressure 123/76 Blood Pressure [Right Arm] 123/76 Blood Pressure Mean [Right Arm] 91 Blood Pressure Source [Right Arm] Automatic Cuff Blood Pressure Position [Right Arm] Sitting 02 Sat by Pulse Oximetry 100 Oxygen Delivery Method Room Air - Lab Data Lab results reviewed: Yes: I reviewed the patient's lab results. Lab Results 04/27/22 11:28: Strep Scn Rapid Clinic Positive A Orders (Tests/Meds): ED MEDICATIONS Discontinued Medications Generic Name Dose Route Start Last Admin Trade Name Ben PRN Reason Stop Dose Admin Penicillin G Benzathine 1,200,000 unit 04/27/22 11:35 04/27/22 11:43 Penicillin G Benzathine 1,200,000 Units/2ml Syringe IM 04/27/22 11:36 1,200,000 unit ONCE ONE Administration Medical Decision Narrative: Patient states that she has taken azithromycin and prednisone in the past without reactions or complications [facility] HPI - General Stated complaint: soa, cough, chest congestion Time Seen by Provider: 04/27/22 11:32 Mode of Arrival: Ambulatory Source of Information: Patient Limitations: No Limitations Description of Symptoms (Recalled from Triage Doc. by RN): PATIENT C/O DRY COUGH, CHEST CONGESTION, AND SORE THROAT X 2 DAYS HEENT Symptoms (Recalled from RN notes): Yes Resp Symptoms (Recalled from RN notes): Yes Skin Symptoms (Recalled from RN notes): No MS Symptoms (Recalled from RN notes): No Functional Status (Recalled from RN notes): WNL - History of Present Illness Provider Complaint: Patient states that she has been having dry cough, sore scratchy thorat, drainage and feels like it is trying to move into her chest State that strep throat is going around at the daycare and she feels like she may have it States that she can barely talk
[2022-04-27 11:44] VITALS: BP 123/76; PULSE 80; RESP 24; TEMP 36.8; O2SAT 100
== END 2022-04-27 11:52 | disposition home or self-care (01) ==
PROVIDERS: Emergency Provider Nurse Practitioner; PCP Emergency Medicine
DX: J02.0 Streptococcal pharyngitis (principal); R05.9 Cough, unspecified
CPT/HCPCS: 87880; 96372; 99212; G0463; J0561

== ENCOUNTER → 2022-06-03 16:00 | Outpatient (CLI) | payer OTHER, SELFPAY ==
[2022-06-03 16:41] LABS: Basophils # 0.3 K/mm3 (0-0.2); Basophils % 2.2 % (0.1-2.0); Eosinophils # 0.7 K/mm3 (0.0-0.4); Eosinophils % 5.5 % (0.1-12.0); Hematocrit 46.2 % (37.0-47.0); Hemoglobin 15.2 g/dL (12.2-16.2); Lymphocytes # 3.5 K/mm3 (0.7-4.5); Lymphocytes % 29.7 % (10-50); Mean Corpuscular Hemoglobin 30.3 pg (27.0-31.2); Mean Corpuscular Volume 91.9 fl (81-99); Mean Platelet Volume 8.2 fl (7.4-10.4); Monocytes # 0.7 K/mm3 (0.1-1.0); Monocytes % 6.1 % (1.7-9.3); Neutrophils # 6.7 K/mm3 (1.8-7.8); Neutrophils % 56.4 % (37.0-80.0); Platelet Count 384 K/mm3 (142-424); Red Blood Count 5.02 M/mm3 (4.20-5.40); Red Cell Distribution Width 15.4 % (11.5-17.5); White Blood Count 11.8 K/mm3 (4.8-10.8)
[2022-06-03 16:56] LABS: Chloride 104 mmol/L (98-107)
[2022-06-03 16:57] LABS: Potassium 3.9 mmoL/L (3.5-5.1); Sodium 139 mmol/L (136-145)
[2022-06-03 16:59] LABS: Alanine Aminotransferase 17 U/L (12-78); Albumin Level 4.2 g/dl (3.5-5.0); Alkaline Phosphatase 98 U/L (38-126); Anion Gap 10.9 mEq/L (5-15); Aspartate Amino Transferase 29 U/L (14-36); Bilirubin,Unconjugated 0.2 mg/dL (0.0-1.1); Blood Urea Nitrogen 16 mg/dl (7-17); Carbon Dioxide 28 mmol/L (22.0-30.0); Cholesterol 133 mg/dl (140-200); Estimated Glomerular Filt Rate 89 ml/min (>60); GFR (African American) 107 ML/MIN (>60); Total Protein,Serum 7.1 g/dl (6.3-8.2); Triglycerides 135 mg/dl (30-150); VLDL Cholesterol 27 mg/dL (0-40)
[2022-06-03 17:00] LABS: Calcium 8.7 mg/dl (8.4-10.2); Chol/HDL Ratio 3.3 (1-3.5); Glucose 85 mg/dl (74-100); HDL Cholesterol 40 mg/dl (40-60); Magnesium 1.8 mg/dl (1.6-2.3)
[2022-06-03 17:07] LABS: Bilirubin,Indirect 0.1 mg/dL (0.0-0.9); Bilirubin,Total < 0.1 mg/dl (0.2-1.3)
[2022-06-03 17:11] LABS: Direct LDL Cholesterol 66.53 mg/dL (100-129)
[2022-06-03 17:17] LABS: Free T4 (Free Thyroxine) 0.92 ng/dl (0.78-2.19)
[2022-06-03 17:30] LABS: Thyroid Stimulating Hormone 1.56 uIU/mL (0.465-4.68)
[2022-06-03 17:36] LABS: Ferritin 11.2 ng/ml (6.24-137)
== END ==
PROVIDERS: PCP Specialist; Visit Provider Physician Assistant
DX: I25.10 Atherosclerotic heart disease of native coronary artery without angina pectoris (principal); I11.9 Hypertensive heart disease without heart failure; E78.2 Mixed hyperlipidemia; I65.23 Occlusion and stenosis of bilateral carotid arteries; E83.10 Disorder of iron metabolism, unspecified
CPT/HCPCS: 36415; 80048; 80061; 80076; 82728; 83735; 84439; 84443; 85025

== ENCOUNTER 2022-08-16 16:46 | Emergency (ER) | payer OTHER, SELFPAY ==
[2022-08-16 18:20] VITALS: BP 132/86; PULSE 101; RESP 18; TEMP 37.1; O2SAT 96
[2022-08-16 18:47] LABS: UTC Influenza A Antigen Positive (Negative)
[2022-08-16 18:48] LABS: UTC Influenza B Antigen Negative (Negative)
--- NOTE | 2022-08-16 18:59 | EXP.UTC ---
Discharge Plan Disposition Patient Disposition: Home, Self-Care Condition: Good Prescriptions Prescriptions: New benzonatate 100 mg capsule 100 mg PO TID PRN (Reason: cough) Qty: 30 0RF No Action aspirin [Adult Low Dose Aspirin] 81 mg tablet,delayed release (DR/EC) 81 mg PO DAILY azithromycin 250 mg tablet See Rx Instructions PO .COMPLEX Qty: 6 0RF Rx Instructions: take 500 mg today (day 1), then 250 mg for 4 days (days 2-5) prednisone 20 mg tablet 20 mg PO BID 5 Days Qty: 10 0RF benzonatate 100 mg capsule 100 mg PO TID PRN (Reason: cough) Qty: 30 0RF albuterol sulfate 90 mcg/actuation HFA aerosol inhaler 2 puff inhalation Q4-6H PRN (Reason: shortness of breath or wheezing) Qty: 8.5 1RF gabapentin 300 mg capsule 300 mg PO BID Qty: 90 5RF Rx Instructions: 300 mg po qam and 600 mg po qhs venlafaxine 37.5 mg capsule,extended release 24hr 37.5 mg PO DAILY Qty: 90 3RF spironolactone 25 mg tablet See Rx Instructions .ROUTE .COMPLEX Qty: 30 5RF Dose Instruction: TAKE 1 TABLET BY MOUTH ONCE DAILY Rx Instructions: TAKE 1 TABLET BY MOUTH ONCE DAILY clopidogrel 75 mg tablet See Rx Instructions .ROUTE .COMPLEX Qty: 30 5RF Dose Instruction: TAKE 1 TABLET BY MOUTH ONCE DAILY Rx Instructions: TAKE 1 TABLET BY MOUTH ONCE DAILY metoprolol succinate 100 mg tablet extended release 24 hr See Rx Instructions .ROUTE .COMPLEX Qty: 30 5RF Dose Instruction: TAKE 1 TABLET BY MOUTH ONCE DAILY Rx Instructions: TAKE 1 TABLET BY MOUTH ONCE DAILY losartan 25 mg tablet See Rx Instructions .ROUTE .COMPLEX Qty: 30 5RF Dose Instruction: TAKE 1 TABLET BY MOUTH ONCE DAILY Rx Instructions: TAKE 1 TABLET BY MOUTH ONCE DAILY hydrochlorothiazide 12.5 mg tablet See Rx Instructions .ROUTE .COMPLEX Qty: 90 0RF Dose Instruction: TAKE ONE TABLET BY MOUTH EVERY DAY Rx Instructions: TAKE ONE TABLET BY MOUTH EVERY DAY atorvastatin 80 mg tablet See Rx Instructions .ROUTE .COMPLEX Qty: 90 3RF Dose Instruction: TAKE 1 TABLET BY MOUTH AT BEDTIME Rx Instructions: TAKE 1 TABLET BY MOUTH AT BEDTIME omeprazole 40 mg capsule,delayed release(DR/EC) See Rx Instructions .ROUTE .COMPLEX Qty: 90 2RF Dose Instruction: TAKE 1 CAPSULE BY MOUTH ONCE DAILY Rx Instructions: TAKE 1 CAPSULE BY MOUTH ONCE DAILY Referrals Follow up/Referrals: Camilo Lopez MD [Primary Care Provider] - See instructions Activity Restrictions/Add. Instructions Additional Instructions/Restrictions: Lots of rest Increase Fluids water, Gatorade, powerade, pedialyte,if /toddler/child Alternate Tylenol and / or ibuprofen as discussed for fever, aches, chills Follow up IMMEDIATELY with your family doctor for new or worsening Symptoms OR no noticeable improvement over the next 48-72 hours, 911 for difficulty or breathing You or your child area contagious until no fever, aches, chills for 24 hours with medication for symptoms Help Prevent the spread of influenza: ?Wash your hands often. Use soap and water. Wash your hands after you use the bathroom, change a child's diapers, or sneeze. Wash your hands before you prepare or eat food. Use gel hand cleanser that has 60% alcohol, when soap and water are not available. Do not touch your eyes, nose, or mouth unless you have washed your hands first. Cover your mouth when you sneeze or cough. Cough into a tissue or the bend of your arm. If you use a tissue, throw it away immediately and wash your hands. Clean shared items with a germ-killing boiler cleaner. Clean table surfaces, doorknobs, and light switches. Do not share towels, silverware, and dishes with people who are sick. Wash bed sheets, towels, silverware, and dishes with soap and water. Wear a mas
[2022-08-16 19:05] VITALS: BP 132/86; PULSE 101; RESP 18; TEMP 37.1; O2SAT 96
== END 2022-08-16 19:08 | disposition home or self-care (01) ==
PROVIDERS: Emergency Provider Nurse Practitioner; PCP Emergency Medicine
DX: J10.1 Influenza due to other identified influenza virus with other respiratory manifestations (principal)
CPT/HCPCS: 87804; 99212; G0463

== ENCOUNTER → 2022-08-21 10:50 | Outpatient (CLI) | payer OTHER, SELFPAY ==
[2022-08-21 14:23] LABS: Adenovirus,PCR Not Detected (NotDetected); Bordetella Pertussis Not Detected (NotDetected); Chlamydophila Pneumoniae, PCR Not Detected (NotDetected); Coronavirus 19, PCR Not Detected (NotDetected); Coronavirus 229E Not Detected (NotDetected); Coronavirus NL63 Not Detected (NotDetected); Coronavirus OC43 Not Detected (NotDetected); Coronovirus HKU1,PCR Not Detected (NotDetected); Human Metapneumovirus Not Detected (NotDetected); Influenza A, PCR Not Detected (NotDetected); Influenza AH1, 2009 Not Detected (NotDetected); Influenza AH1, PCR Not Detected (NotDetected); Influenza AH3,PCR Not Detected (NotDetected); Influenza B, PCR Not Detected (NotDetected); Mycoplasma Pneumoniae, PCR Not Detected (NotDetected); Parainfluenza 1, PCR Not Detected (NotDetected); Parainfluenza 2, PCR Not Detected (NotDetected); Parainfluenza 3, PCR Not Detected (NotDetected); Parainfluenza 4, PCR Not Detected (NotDetected); Respiratory Syncytial Virus Not Detected (NotDetected); Rhinovirus/Enterovirus Not Detected (NotDetected)
== END ==
PROVIDERS: PCP Student in an Organized Health Care Education/Training Program; Visit Provider Student in an Organized Health Care Education/Training Program
DX: R05.9 Cough, unspecified (principal)
CPT/HCPCS: 87581; 87632; 87798; C9803; U0003; U0005

== ENCOUNTER 2022-11-11 03:31 | Emergency (ER) | payer OTHER, SELFPAY ==
[2022-11-11 03:38] VITALS: BP 143/77; PULSE 86; RESP 16; TEMP 36.8; O2SAT 98; BMI 29.8
--- NOTE | 2022-11-11 03:44 | XR_ITS ---
PROCEDURE INFORMATION: Exam: XR Left Knee Exam date and time: 11/11/2022 3:47 AM Age: 52 years old Clinical indication: Patient HX: PT states left knee painful to bend. Nki; Additional info: Knee pain TECHNIQUE: Imaging protocol: Radiologic exam of the Left knee. Views: 3 views. COMPARISON: CR [id number] 11/26/2016 2:02 PM FINDINGS: Bones/joints: Normal. Soft tissues: Normal. IMPRESSION: No acute findings.
[2022-11-11 04:01] VITALS: BP 104/59; PULSE 81; O2SAT 99
[2022-11-11 04:30] VITALS: BP 103/67; PULSE 78; O2SAT 97
--- NOTE | 2022-11-11 04:39 | PC.NURSE ---
Rounded on patient, no needs voiced at this time.
--- NOTE | 2022-11-11 04:54 | HMH.EDLOEX ---
Discharge Plan Disposition Patient Disposition: Home, Self-Care Prescriptions Prescriptions: New prednisone [prednisone] 20 mg tablet 20 mg PO DAILY Qty: 7 0RF No Action aspirin [Adult Low Dose Aspirin] 81 mg tablet,delayed release (DR/EC) 81 mg PO DAILY albuterol sulfate 90 mcg/actuation HFA aerosol inhaler 2 puff inhalation Q4-6H PRN (Reason: shortness of breath or wheezing) Qty: 8.5 1RF gabapentin 300 mg capsule 300 mg PO BID Qty: 90 5RF Rx Instructions: 300 mg po qam and 600 mg po qhs metoprolol succinate 100 mg tablet extended release 24 hr See Rx Instructions .ROUTE .COMPLEX Qty: 30 5RF Dose Instruction: TAKE 1 TABLET BY MOUTH ONCE DAILY Rx Instructions: TAKE 1 TABLET BY MOUTH ONCE DAILY losartan 25 mg tablet See Rx Instructions .ROUTE .COMPLEX Qty: 30 5RF Dose Instruction: TAKE 1 TABLET BY MOUTH ONCE DAILY Rx Instructions: TAKE 1 TABLET BY MOUTH ONCE DAILY atorvastatin 80 mg tablet See Rx Instructions .ROUTE .COMPLEX Qty: 90 3RF Dose Instruction: TAKE 1 TABLET BY MOUTH AT BEDTIME Rx Instructions: TAKE 1 TABLET BY MOUTH AT BEDTIME omeprazole 40 mg capsule,delayed release(DR/EC) See Rx Instructions .ROUTE .COMPLEX Qty: 90 2RF Dose Instruction: TAKE 1 CAPSULE BY MOUTH ONCE DAILY Rx Instructions: TAKE 1 CAPSULE BY MOUTH ONCE DAILY spironolactone 25 mg tablet See Rx Instructions .ROUTE .COMPLEX Qty: 90 3RF Dose Instruction: TAKE 1 TABLET BY MOUTH ONCE DAILY Rx Instructions: TAKE 1 TABLET BY MOUTH ONCE DAILY clopidogrel 75 mg tablet See Rx Instructions .ROUTE .COMPLEX Qty: 90 3RF Dose Instruction: TAKE 1 TABLET BY MOUTH ONCE DAILY Rx Instructions: TAKE 1 TABLET BY MOUTH ONCE DAILY venlafaxine 37.5 mg capsule,extended release 24hr See Rx Instructions .ROUTE .COMPLEX Qty: 90 2RF Dose Instruction: TAKE 1 CAPSULE BY MOUTH ONCE DAILY Rx Instructions: TAKE 1 CAPSULE BY MOUTH ONCE DAILY hydrochlorothiazide 12.5 mg tablet See Rx Instructions .ROUTE .COMPLEX Qty: 90 0RF Dose Instruction: TAKE ONE TABLET BY MOUTH EVERY DAY Rx Instructions: TAKE ONE TABLET BY MOUTH EVERY DAY Referrals Follow up/Referrals: Camilo Lopez MD [Primary Care Provider] - See instructions Clinical Impressions Clinical Impression: Internal derangement of knee Instructions Patient Instructions: DI for Knee Pain Discharge ED Provider: John (ED)Camilo Lower Extremity Injury HPI General Chief Complaint: Extremity Injury, Lower Stated Complaint: Left knee pain Time Seen by Provider: 11/11/22 04:54 Mode of Arrival: Ambulatory Source of Information: Patient and Medical Record Limitations: No Limitations Description of Symptoms (Recalled from ER Triage Doc. by RN): Pt states that she was laying in bed at 0130 and her left knee popped and began to hurt. States that she struggles with knee pain typically but this knee pain is more severe than normal. Denies any injury prior to the popping that she experineced. History of Present Illness HPI Narrative: acute pain to lt knee with popping and has sig lt knee pain an limited wt bearing MD complaint: knee injury Onset (ago): hour(s) Injury: Left: knee Place: home Severity: severe Associated symptoms: snap/pop sensation Other symptoms: none Related Data Home Medications Medication Instructions Recorded Confirmed aspirin 81 mg tablet,delayed 81 mg PO DAILY thinner 12/22/17 11/10/22 release (Adult Low Dose Aspirin) Previous Rx's Medication Instructions Recorded gabapentin 300 mg capsule 300 mg PO BID neuropathy #90 caps 04/17/22 losartan 25 mg tablet See Rx Instructions .Route 05/12/22 .COMPLEX #30 tabs metoprolol succinate 100 mg See Rx Instructions .Route 05/12/22 tablet,extended release 24 hr .COMPLEX #30 tabs albuterol sulfate 90 mcg/actuation 2 puff inhalation Q4-6H PRN 06/25/22 aerosol
[2022-11-11 05:57] VITALS: BP 103/67; PULSE 78; RESP 18; TEMP 36.6; O2SAT 97
== END 2022-11-11 05:59 | disposition home or self-care (01) ==
PROVIDERS: Emergency Provider Emergency Medicine; PCP Emergency Medicine
DX: M23.92 Unspecified internal derangement of left knee (principal); F41.9 Anxiety disorder, unspecified; E78.5 Hyperlipidemia, unspecified; I10 Essential (primary) hypertension; F17.210 Nicotine dependence, cigarettes, uncomplicated; G25.81 Restless legs syndrome; Z86.79 Personal history of other diseases of the circulatory system
CPT/HCPCS: 29505; 73562; 96374; 96375; 99284; J0131

== ENCOUNTER → 2022-11-19 11:52 | Outpatient (CLI) | payer OTHER, SELFPAY ==
--- NOTE | 2022-11-19 11:52 | MR_ITS ---
FINAL REPORT TECHNIQUE: Multiplanar and multisequence imaging of the right knee was obtained without contrast. CLINICAL HISTORY: internal derangement of knee, swelling of knee, symptoms x1 week COMPARISON: None FINDINGS: Bones: There is no acute fracture or marrow edema. There is mild degenerative disease most pronounced at the patellofemoral compartment. Menisci: No meniscal tear is present. Ligaments: No cruciate or collateral ligament tear is present. Tendons/Muscles: The quadriceps and patellar tendons are within normal limits. The biceps femoris tendon and iliotibial tract are intact. The popliteus tendon is normal. Other: There is a moderate joint effusion. There is a lobulated cystic lesion posteromedial knee measuring 2 cm. This is outside the joint capsule and likely synovial cyst. IMPRESSION: Degenerative joint disease. Joint effusion. Posteromedial synovial cyst. Reviewed, Interpreted and Dictated by Marisa Manuel MD Transcribed by Wanda Grady Authenticated and [facility]
== END ==
PROVIDERS: PCP Emergency Medicine; Visit Provider Emergency Medicine
DX: M23.92 Unspecified internal derangement of left knee (principal); M25.562 Pain in left knee
CPT/HCPCS: 73721

== ENCOUNTER 2022-12-05 13:25 | Outpatient (RCR) | payer OTHER, SELFPAY | END 2022-12-05 14:30 | disposition home or self-care (01) | LOC: PT 13:25 | PROVIDERS: Visit Provider Orthopaedic Surgery | DX: M25.562 Pain in left knee (principal) | CPT/HCPCS: 97760 ==

== ENCOUNTER 2022-12-25 16:00 | Outpatient (RCR) | payer OTHER, SELFPAY ==
--- NOTE | 2022-12-03 11:50 | HMH.PTOPEV ---
PT Outpatient Evaluation Rehab PT Outpatient Evaluation Start: 12/03/22 10:44 Freq: Status: Active Protocol: Document 12/03/22 10:44 MARCOS (Rec: 12/03/22 11:50 MARCOS [id number]) E-signed By Lesia Suero, PT Outpatient Therapy Subjective History Subjective History Pt is a 52 y/o female that reports insidious onset of left knee pain a month ago. Pt reports only known history of knee injury as hitting her knee on a fair ride restraint years ago with noted swelling after. Pt reports she has severe pain with bending and straightening the knee described as burning of the posterior knee and pulling of the anterior knee under the patella. Pt reports her knee pops all the time and is often painful. Pt reports on she woke up in excruciating pain so she went to the ER. Pt reports she was placed in a knee immobilizer which did help some with pain. Pt reports she quit wearing it last week because it stretched out and no longer fit. Pt reports 2 weeks ago her knee gave out on her causing her to fall, states she landed on the right elbow without known injuries. Pt had a left knee MRI at [facility] on 11/19 with findings of Degenerative joint disease. Joint effusion. Posteromedial synovial cyst. Pt reports pain is worse when she wakes up in the mornings and she has extreme stiffness of the knee . Pt also reports it swells on her intermittently. Pt denies known osteo or rheumatoid arthritis, states she saw an arthritist specialist 2-3 years ago but was only vaguely told she has some in her fingers. Pt reports she has
== END 2022-12-25 16:05 | disposition home or self-care (01) ==
LOC: PT 16:00
PROVIDERS: PCP Emergency Medicine; Visit Provider Emergency Medicine
DX: M25.562 Pain in left knee (principal); M23.92 Unspecified internal derangement of left knee
CPT/HCPCS: 97010; 97014; 97035; 97110; 97140; 97163; G0283

== ENCOUNTER → 2023-01-19 12:38 | Outpatient (CLI) | payer OTHER, SELFPAY ==
[2023-01-19 13:23] LABS: Basophils # 0.1 K/mm3 (0-0.2); Basophils % 0.4 % (0.1-2.0); Eosinophils # 0.6 K/mm3 (0.0-0.4); Hematocrit 45.9 % (37.0-47.0); Lymphocytes # 3.7 K/mm3 (0.7-4.5); Lymphocytes % 26.6 % (10-50); Mean Corpuscular HGB Conc 32.8 g/dL (31.8-35.4); Mean Corpuscular Hemoglobin 30.6 pg (27.0-31.2); Mean Corpuscular Volume 93.3 fl (81-99); Mean Platelet Volume 8.1 fl (7.4-10.4); Monocytes # 0.7 K/mm3 (0.1-1.0); Monocytes % 5.1 % (1.7-9.3); Neutrophils # 8.9 K/mm3 (1.8-7.8); Platelet Count 399 K/mm3 (142-424); Red Blood Count 4.92 M/mm3 (4.20-5.40); Red Cell Distribution Width 13.5 % (11.5-17.5)
[2023-01-19 13:32] LABS: Chloride 99 mmol/L (98-107); Sodium 132 mmol/L (136-145)
[2023-01-19 13:34] LABS: Alanine Aminotransferase 22 U/L (12-78); Aspartate Amino Transferase 28 U/L (14-36); Blood Urea Nitrogen 11 mg/dl (7-17); Estimated Glomerular Filt Rate 106 ml/min (>60); GFR (African American) 128 ML/MIN (>60)
[2023-01-19 13:35] LABS: Albumin Level 3.8 g/dl (3.5-5.0); Albumin/Globulin Ratio 1.5 (1.1-1.8); Alkaline Phosphatase 87 U/L (38-126); Bilirubin,Total 0.2 mg/dl (0.2-1.3); Calcium 8.6 mg/dl (8.4-10.2); Carbon Dioxide 27 mmol/L (22.0-30.0); Globulin 2.6 g/dL (1.3-3.2); Glucose 113 mg/dl (74-100); Total Protein,Serum 6.4 g/dl (6.3-8.2)
[2023-01-19 13:49] LABS: Triiodothryronine (T3) Uptake 29 % (23.5-40.5)
[2023-01-19 13:50] LABS: Free Thyroxine Index 2.4 ug/dL (5.93-13.13); T4 (Thyroxine) 8.4 ug/dl (5.53-11.0)
[2023-01-19 14:04] LABS: Thyroid Stimulating Hormone 2.22 uIU/mL (0.465-4.68)
== END ==
PROVIDERS: PCP Emergency Medicine; Visit Provider Nurse Practitioner Obstetrics & Gynecology
DX: N92.0 Excessive and frequent menstruation with regular cycle (principal)
CPT/HCPCS: 36415; 80053; 84436; 84443; 84479; 85025

== ENCOUNTER → 2023-01-19 12:51 | Outpatient (CLI) | payer OTHER, SELFPAY ==
--- NOTE | 2023-01-19 12:52 | US_ITS ---
FINAL REPORT CLINICAL HISTORY: Menorrhagia FINDINGS: Transvaginal Ultrasound Technique: Transvaginal sonographic images of the pelvis were obtained. Findings: The uterus is enlarged up to 9.8 cm and heterogeneous consistent with diffuse fibroids. The endometrium measures 6 mm which is within normal limits. The right ovary measures up to 3.9 cm. The left ovary measures up to 2.0 cm. There is a right ovarian cyst measuring 3.3 x 2.3 cm. Blood flow is identified to both ovaries. IMPRESSION: Fibroid uterus. Right ovarian cyst. Reviewed, Interpreted and Dictated by Vivek Larkin MD Transcribed by Zachery Marks Authenticated and [facility]
== END ==
PROVIDERS: PCP Emergency Medicine; Visit Provider Nurse Practitioner Obstetrics & Gynecology
DX: N92.0 Excessive and frequent menstruation with regular cycle (principal)
CPT/HCPCS: 76830

== ENCOUNTER 2023-06-22 14:40 | Emergency (ER) | payer OTHER, SELFPAY ==
[2023-06-22 15:00] VITALS: BP 126/85; PULSE 79; RESP 18; TEMP 36.6; O2SAT 96; BMI 31.4
--- NOTE | 2023-06-22 15:03 | EXP.UTC ---
Discharge Plan Disposition Patient Disposition: Home, Self-Care Condition: Good Prescriptions Prescriptions: New azithromycin [Zithromax] 250 mg tablet 250 mg PO UD DOSE PK Qty: 6 0RF Rx Instructions: Take two (2) tablets today, then one (1) tablet days #2 thru #5 methylprednisolone 4 mg Tablets,Dose Pack 4 mg PO DIRECTED Qty: 21 0RF benzonatate [benzonatate] 100 mg capsule 100 mg PO TIDP PRN (Reason: Cough) Qty: 30 0RF No Action aspirin [Adult Low Dose Aspirin] 81 mg tablet,delayed release (DR/EC) 81 mg PO DAILY pantoprazole [Protonix] 40 mg tablet,delayed release (DR/EC) 40 mg PO DAILY Qty: 30 5RF metoprolol succinate 100 mg tablet extended release 24 hr 100 mg PO BID Qty: 180 3RF atorvastatin 80 mg tablet See Rx Instructions .ROUTE .COMPLEX Qty: 90 3RF Dose Instruction: TAKE 1 TABLET BY MOUTH AT BEDTIME Rx Instructions: TAKE 1 TABLET BY MOUTH AT BEDTIME spironolactone 25 mg tablet See Rx Instructions .ROUTE .COMPLEX Qty: 90 3RF Dose Instruction: TAKE 1 TABLET BY MOUTH ONCE DAILY Rx Instructions: TAKE 1 TABLET BY MOUTH ONCE DAILY clopidogrel 75 mg tablet See Rx Instructions .ROUTE .COMPLEX Qty: 90 3RF Dose Instruction: TAKE 1 TABLET BY MOUTH ONCE DAILY Rx Instructions: TAKE 1 TABLET BY MOUTH ONCE DAILY venlafaxine 37.5 mg capsule,extended release 24hr See Rx Instructions .ROUTE .COMPLEX Qty: 90 2RF Dose Instruction: TAKE 1 CAPSULE BY MOUTH ONCE DAILY Rx Instructions: TAKE 1 CAPSULE BY MOUTH ONCE DAILY losartan 25 mg tablet See Rx Instructions .ROUTE .COMPLEX Qty: 90 1RF Dose Instruction: TAKE 1 TABLET BY MOUTH ONCE DAILY Rx Instructions: TAKE 1 TABLET BY MOUTH ONCE DAILY hydrochlorothiazide 12.5 mg tablet See Rx Instructions .ROUTE .COMPLEX Qty: 90 3RF Dose Instruction: TAKE ONE TABLET BY MOUTH EVERY DAY Rx Instructions: TAKE ONE TABLET BY MOUTH EVERY DAY Referrals Follow up/Referrals: Camilo Lopez MD [Primary Care Provider] - See instructions Activity Restrictions/Add. Instructions Additional Instructions/Restrictions: Drink plenty of fluids. Take tylenol or ibuprofen for pain or fever. Take the medications as directed. Follow up with your regular doctor. GO TO THE ER FOR ANY WORSENING SYMPTOMS Clinical Impressions Clinical Impression: Sinusitis, Acute viral syndrome Stand Alone Forms Stand Alone Forms: Work/School Release Instructions Patient Instructions: DI for Sinusitis, DI for Viral Syndrome Discharge ED Provider: Leonardo Reilly [facility] [place] General Stated complaint: head congestion ear pain cough Time Seen by Provider: 06/22/23 15:03 History of Present Illness Provider Complaint: She states that for the past 4 days she has had sinus congestion, bilateral ear pain, scratchy throat, and a nonproductive cough. Related Data Home Medications Medication Instructions Recorded Confirmed aspirin 81 mg tablet,delayed 81 mg PO DAILY thinner 12/22/17 05/11/23 release (Adult Low Dose Aspirin) Previous Rx's Medication Instructions Recorded atorvastatin 80 mg tablet See Rx Instructions .Route 07/16/22 .COMPLEX #90 ea clopidogrel 75 mg tablet See Rx Instructions .Route 09/01/22 .COMPLEX #90 tabs spironolactone 25 mg tablet See Rx Instructions .Route 09/01/22 .COMPLEX #90 tabs venlafaxine 37.5 mg See Rx Instructions .Route 09/16/22 capsule,extended release 24 hr .COMPLEX #90 caps losartan 25 mg tablet See Rx Instructions .Route 01/06/23 .COMPLEX #90 tabs hydrochlorothiazide 12.5 mg tablet See Rx Instructions .Route 02/18/23 .COMPLEX #90 tabs metoprolol succinate 100 mg 100 mg PO BID #180 tabs 05/11/23 tablet,extended release 24 hr pantoprazole 40 mg tablet,delayed 40 mg PO DAILY #30 tabs 05/11/23 release (Protonix) azithromycin 250 mg tablet 250 mg PO UD DOSE PK #6 tabs 06/22/23 (Zithromax) jenina
[2023-06-22 15:11] LABS: Adenovirus,PCR Not Detected (NotDetected); Bordetella Pertussis Not Detected (NotDetected); Chlamydophila Pneumoniae, PCR Not Detected (NotDetected); Coronavirus 19, PCR Not Detected (NotDetected); Coronavirus 229E Not Detected (NotDetected); Coronavirus NL63 Not Detected (NotDetected); Coronavirus OC43 Not Detected (NotDetected); Coronovirus HKU1,PCR Not Detected (NotDetected); Human Metapneumovirus Not Detected (NotDetected); Influenza A, PCR Not Detected (NotDetected); Influenza AH1, 2009 Not Detected (NotDetected); Influenza AH1, PCR Not Detected (NotDetected); Influenza AH3,PCR Not Detected (NotDetected); Influenza B, PCR Not Detected (NotDetected); Mycoplasma Pneumoniae, PCR Not Detected (NotDetected); Parainfluenza 1, PCR Not Detected (NotDetected); Parainfluenza 2, PCR Not Detected (NotDetected); Parainfluenza 3, PCR Not Detected (NotDetected); Parainfluenza 4, PCR Not Detected (NotDetected); Respiratory Syncytial Virus Not Detected (NotDetected); Rhinovirus/Enterovirus Not Detected (NotDetected)
[2023-06-22 15:16] LABS: UTC Strep Screen (Rapid) Negative (Negative)
[2023-06-22 15:17] LABS: UTC Influenza A Antigen Negative (Negative); UTC Influenza B Antigen Negative (Negative)
[2023-06-22 15:37] VITALS: BP 126/85; PULSE 79; RESP 18; TEMP 36.6; O2SAT 96
== END 2023-06-22 15:37 | disposition home or self-care (01) ==
PROVIDERS: Emergency Provider Nurse Practitioner Family; PCP Emergency Medicine
DX: J01.90 Acute sinusitis, unspecified (principal); B34.9 Viral infection, unspecified; F17.210 Nicotine dependence, cigarettes, uncomplicated; I25.10 Atherosclerotic heart disease of native coronary artery without angina pectoris; I11.9 Hypertensive heart disease without heart failure; E78.5 Hyperlipidemia, unspecified; G25.81 Restless legs syndrome; F41.9 Anxiety disorder, unspecified
CPT/HCPCS: 87581; 87632; 87635; 87798; 87804; 87880; 99212; 99214; G0463

== ENCOUNTER 2023-11-09 13:25 | Outpatient (CLI) | payer OTHER, SELFPAY ==
[2023-11-09 13:49] LABS: Basophils # 0.1 K/mm3 (0-0.2); Basophils % 0.5 % (0.1-2.0); Eosinophils # 0.5 K/mm3 (0.0-0.4); Eosinophils % 5.4 % (0.1-12.0); Hematocrit 48.3 % (37.0-47.0); Hemoglobin 16.7 g/dL (12.2-16.2); Lymphocytes # 3.8 K/mm3 (0.7-4.5); Lymphocytes % 37.5 % (10-50); Mean Corpuscular HGB Conc 34.5 g/dL (31.8-35.4); Mean Corpuscular Hemoglobin 31.8 pg (27.0-31.2); Mean Corpuscular Volume 92.1 fl (81-99); Mean Platelet Volume 8.1 fl (7.4-10.4); Monocytes # 0.5 K/mm3 (0.1-1.0); Monocytes % 4.8 % (1.7-9.3); Neutrophils # 5.2 K/mm3 (1.8-7.8); Neutrophils % 51.8 % (37.0-80.0); Platelet Count 344 K/mm3 (142-424); Red Blood Count 5.25 M/mm3 (4.20-5.40); Red Cell Distribution Width 13.6 % (11.5-17.5)
[2023-11-09 15:14] LABS: Direct LDL Cholesterol 75.94 mg/dL (100-129)
[2023-11-09 15:40] LABS: Free T4 (Free Thyroxine) 0.96 ng/dl (0.78-2.19)
[2023-11-09 15:50] LABS: Thyroid Stimulating Hormone 2.12 uIU/mL (0.465-4.68)
[2023-11-09 21:03] LABS: Chloride 106 mmol/L (98-107)
[2023-11-09 21:04] LABS: Potassium 4.4 mmoL/L (3.5-5.1); Sodium 138 mmol/L (136-145)
[2023-11-09 21:06] LABS: Alanine Aminotransferase 35 U/L (12-78); Anion Gap 8.4 mEq/L (5-15); Aspartate Amino Transferase 36 U/L (14-36); Bilirubin,Unconjugated 0.1 mg/dL (0.0-1.1); Blood Urea Nitrogen 10 mg/dl (7-17); Carbon Dioxide 28 mmol/L (22.0-30.0); Estimated Glomerular Filt Rate 88 ml/min (>60); GFR (African American) 107 ML/MIN (>60)
[2023-11-09 21:07] LABS: Albumin Level 4.3 g/dl (3.5-5.0); Alkaline Phosphatase 100 U/L (38-126); Bilirubin,Direct 0.2 mg/dl (0.0-0.4); Bilirubin,Indirect 0.1 mg/dL (0.0-0.9); Bilirubin,Total 0.3 mg/dl (0.2-1.3); Calcium 9.5 mg/dl (8.4-10.2); Chol/HDL Ratio 4.2 (1-3.5); Cholesterol 139 mg/dl (140-200); Glucose 100 mg/dl (74-100); HDL Cholesterol 33 mg/dl (40-60); Total Protein,Serum 7.2 g/dl (6.3-8.2); Triglycerides 140 mg/dl (30-150); VLDL Cholesterol 28 mg/dL (0-40)
== END 2023-11-09 23:59 ==
LOC: LAB 13:26
PROVIDERS: PCP Nurse Practitioner Family; Visit Provider Nurse Practitioner Family
DX: I11.9 Hypertensive heart disease without heart failure (principal); I25.10 Atherosclerotic heart disease of native coronary artery without angina pectoris; E78.5 Hyperlipidemia, unspecified; I77.9 Disorder of arteries and arterioles, unspecified; R06.00 Dyspnea, unspecified; K21.9 Gastro-esophageal reflux disease without esophagitis; F17.210 Nicotine dependence, cigarettes, uncomplicated
CPT/HCPCS: 36415; 80048; 80061; 80076; 84439; 84443; 85025

== ENCOUNTER 2023-11-11 10:15 | Emergency (ER) | payer OTHER, SELFPAY ==
[2023-11-11 10:34] VITALS: BP 119/72; PULSE 85; RESP 22; TEMP 36.5; O2SAT 96; BMI 31.0
--- NOTE | 2023-11-11 10:37 | ED_ITS ---
Discharge Plan Disposition Patient Disposition: Home, Self-Care Condition: Good Prescriptions Prescriptions: No Action aspirin [Adult Low Dose Aspirin] 81 mg tablet,delayed release (DR/EC) 81 mg PO DAILY omeprazole 40 mg capsule,delayed release(DR/EC) 40 mg PO DAILY Qty: 30 5RF metoprolol succinate [Toprol XL] 50 mg tablet extended release 24 hr 50 mg PO BID Qty: 60 5RF hydrochlorothiazide 12.5 mg tablet See Rx Instructions .ROUTE .COMPLEX Qty: 90 3RF Dose Instruction: TAKE ONE TABLET BY MOUTH EVERY DAY Rx Instructions: TAKE ONE TABLET BY MOUTH EVERY DAY venlafaxine 37.5 mg capsule,extended release 24hr See Rx Instructions .ROUTE .COMPLEX Qty: 90 1RF Dose Instruction: TAKE 1 CAPSULE BY MOUTH ONCE DAILY Rx Instructions: TAKE 1 CAPSULE BY MOUTH ONCE DAILY atorvastatin 80 mg tablet See Rx Instructions .ROUTE .COMPLEX Qty: 90 3RF Dose Instruction: TAKE 1 TABLET BY MOUTH AT BEDTIME Rx Instructions: TAKE 1 TABLET BY MOUTH AT BEDTIME losartan 25 mg tablet See Rx Instructions .ROUTE .COMPLEX Qty: 90 1RF Dose Instruction: TAKE 1 TABLET BY MOUTH ONCE DAILY Rx Instructions: TAKE 1 TABLET BY MOUTH ONCE DAILY spironolactone 25 mg tablet See Rx Instructions .ROUTE .COMPLEX Qty: 90 2RF Dose Instruction: TAKE 1 TABLET BY MOUTH ONCE DAILY Rx Instructions: TAKE 1 TABLET BY MOUTH ONCE DAILY Referrals Follow up/Referrals: Florencio Goodman APRN [Primary Care Provider] - See instructions Activity Restrictions/Add. Instructions Additional Instructions/Restrictions: *Monitor Temp, Over the counter Motrin or Tylenol as directed/as needed Tylenol every 4 hours and Motrin every 6 hours (as long as your family doctor has told you that you can take it) for fever or pain. and straight to ER if unable to lower temp less than 101.0 after medication given *Warm salt water gargles may help to soothe the throat *Throat Lozenges? *Warm fluids like tea with honey may help to soothe the throat? *Sleep elevated *Humidifier/Vaporizer *Flonase 2 sprays in each nostril daily but be aware that it may take 2-3 days before you notice improvement *Bromfed may cause drowsiness. Know how it effects you (your child) before driving, caring for small child, or sending your child to school. Not other antihistamines/allergy medications while taking bromfed Your throat swab was sent for culture. Those results are typically sent to your primary care. Be sure to follow up in 2-3 days with your family doctor/primary care physician if no improvement so they can review those result and treat if necessary. If you don?t have a primary care doctor, I recommend you get one but in the mean time, you will have to return to a walk in clinic Follow up IMMEDIATELY for new or worsening symptoms or no Noticeable improvement over the next 48-72 hours. 911 for difficulty breathing or swallowing You were tested for today for COVID19 your test result should be back in the next 24hours, you may Check your Results on the [facility] Portal if your COVID test is positive you must Quarantine for 5 days Clinical Impressions Clinical Impression: Viral syndrome Stand Alone Forms Stand Alone Forms: Work/School Release Instructions Patient Instructions: DI for Viral Syndrome, DI for Fever (Symptom) -- Adult Discharge ED Provider: Crys Pat[place] [facility] [place] General Stated complaint: headache, body aches, fever, Mode of Arrival: Ambulatory Source of Information: Patient Limitations: No Limitations Time Seen by Provider: 11/11/23 10:37 Description of Symptoms (Recalled from Triage Doc. by RN): Patient reports headache, body aches and other flu like symptoms since yesterday. 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 States that she has been having flu like symptoms Fever, chills, body aches, and headache so today she came in to get checked Related Data Home Medications Medication Instructions Recorded Confirmed aspirin 81 mg tablet,delayed 81 mg PO DAILY thinner 12/22/17 11/09/23 release (Adult Low Dose Aspirin) Previous Rx's Medication Instructions Recorded hydrochlorothiazide 12.5 mg tablet See Rx Instructions .Route 02/18/23 .COMPLEX #90 tabs venlafaxine 37.5 mg See Rx Instructions .Route 07/20/23 capsule,extended release 24 hr .COMPLEX #90 caps atorvastatin 80 mg tablet See Rx Instructions .Route 08/17/23 .COMPLEX #90 ea losartan 25 mg tablet See Rx Instructions .Route 08/17/23 .COMPLEX #90 tabs spironolactone 25 mg tablet See Rx Instructions .Route 09/30/23 .COMPLEX #90 tabs metoprolol succinate 50 mg 50 mg PO BID #60 tabs 11/09/23 tablet,extended release 24 hr (Toprol XL) omeprazole 40 mg capsule,delayed 40 mg PO DAILY #30 caps 11/09/23 release Allergies Allergy/AdvReac Type Severity Reaction Status Date / Time No Known Allergies Allergy Verified 11/09/23 12:59 Worker's Comp Is this a Worker's Comp case?: No [facility] Disclaimer: The information contained in this section may have been updated after the patient was seen, as this information can be updated by other users. Medical History (Updated 11/11/23 @ 10:43 by Crys Patel APRN) Abnormal cardiovascular stress test Abnormal electrocardiography Anxiety Atypical angina Carotid artery disease Dyspnea Edema Ex-smoker for less than 1 year HHD (hypertensive heart disease) HLD (hyperlipidemia) Hypertension RLS (restless legs syndrome) Sinus tachycardia Tobacco dependence syndrome Surgical History History of cardiac cath History of salpingectomy Social History Smoking Status: Current every day smoker tobacco type: cigarettes packs per day: 1 second hand exposure: No alcohol intake: never substance use type: denies use current occupational status: other Travel in the last 8 weeks: Inside the [place] household members: children and other housing: house current occupational exposures/hazards: No caffeine: Yes ROS Obtained: Yes All systems reviewed & no additional complaints except as d ocumented and Yes Systems reviewed as appropriate & no additional complaints except as documented Constitutional Constitutional: Reports system reviewed and no additional complaints, except as documented, Reports as per HPI, Reports body ache, Reports chills, Reports fatigue, Reports fever(s) and Reports headache(s) ENT Ears, Nose, Mouth, and Throat: Reports system reviewed and no additional complaints, except as documented, Reports as per HPI, Reports headache(s) and Reports nasal congestion Cardiovascular Cardiovascular: Reports system reviewed and no additional complaints, except as documented and Reports as per HPI Respiratory Respiratory: Reports system reviewed and no additional complaints, except as documented and Reports as per HPI Gastrointestinal Gastrointestingal: Reports system reviewed and no additional complaints, except as documented and as per HPI Genitourinary Female Genitourinary: Reports system reviewed and no additional complaints, except as documented and Reports as per HPI Neurologic Neurologic: Reports headache(s) Endocrine Endocrine: Reports fatigue Physical Exam General General appearance: alert and in no apparent distress ENT ENT exam: Present mucous membranes moist and TM's normal bilaterally Expanded ENT Exam Nose exam: Absent sinus tenderness Throat exam: Present normal inspection Respiratory Respiratory exam: Present normal lung sounds bilaterally; Absent respiratory distress or wheezes Cardiovascular Cardiovascular exam: Present regular rate, normal rhythm and normal heart sounds Abdominal Exam Abdominal exam: Present soft and normal bowel sounds; Absent distention or tenderness Neurological Exam Neurological exam: Present alert, oriented X3 and normal gait Medical Decision Making Marky Inquiry Pt receiving controlled substance: No Marky was queried for this patient: No Vital Signs: 11/11/23 10:34 Temperature 97.7 F Temperature Source Oral Pulse Rate [Radial] 85 Respiratory Rate 22 Blood Pressure [Right Arm] 119/72 Blood Pressure Mean [Right Arm] 87 Blood Pressure Source [Right Arm] Automatic Cuff Blood Pressure Position [Right Arm] Sitting 02 Sat by Pulse Oximetry 96 Oxygen Delivery Method Room Air Lab Data Lab results reviewed: Yes I reviewed the patient's lab results.
[2023-11-11 10:50] LABS: Adenovirus,PCR Not Detected (NotDetected); Coronavirus 19, PCR Not Detected (NotDetected); Coronavirus 229E Not Detected (NotDetected); Coronavirus NL63 Not Detected (NotDetected); Coronavirus OC43 Not Detected (NotDetected); Coronovirus HKU1,PCR Not Detected (NotDetected); Human Metapneumovirus Not Detected (NotDetected); Influenza A, PCR Not Detected (NotDetected); Influenza AH1, 2009 Not Detected (NotDetected); Influenza AH1, PCR Not Detected (NotDetected); Influenza AH3,PCR Not Detected (NotDetected); Influenza B, PCR Not Detected (NotDetected); Parainfluenza 1, PCR Not Detected (NotDetected); Parainfluenza 2, PCR Not Detected (NotDetected); Parainfluenza 3, PCR Not Detected (NotDetected); Parainfluenza 4, PCR Not Detected (NotDetected); Respiratory Syncytial Virus Not Detected (NotDetected)
[2023-11-11 11:07] VITALS: BP 119/72; PULSE 85; RESP 22; TEMP 36.5; O2SAT 96
[2023-11-11 12:04] LABS: UTC Influenza A Antigen Negative (Negative); UTC Influenza B Antigen Negative (Negative)
[2023-11-11 13:39] LABS: Rhinovirus/Enterovirus Detected (NotDetected)
== END 2023-11-11 11:08 | disposition home or self-care (01) ==
PROVIDERS: Emergency Provider Nurse Practitioner; PCP Nurse Practitioner Family
DX: R51.9 Headache, unspecified (principal); B34.1 Enterovirus infection, unspecified; R50.9 Fever, unspecified; B34.9 Viral infection, unspecified; Z20.828 Contact with and (suspected) exposure to other viral communicable diseases; F17.210 Nicotine dependence, cigarettes, uncomplicated; I11.9 Hypertensive heart disease without heart failure; I25.119 Atherosclerotic heart disease of native coronary artery with unspecified angina pectoris; E78.5 Hyperlipidemia, unspecified
CPT/HCPCS: 87632; 87635; 87804; 99212; 99213; G0463

== ENCOUNTER 2023-12-14 15:11 | Emergency (ER) | payer OTHER, SELFPAY ==
[2023-12-14 15:20] VITALS: BP 138/78; PULSE 84; RESP 18; TEMP 36.6; O2SAT 99; BMI 31.5
--- NOTE | 2023-12-14 15:50 | EXP.UTC ---
Discharge Plan Disposition Patient Disposition: Home, Self-Care Condition: Good Prescriptions Prescriptions: New azithromycin [Zithromax Z-Shahzad] 250 mg tablet See Rx Instructions .ROUTE .COMPLEX 5 Days Qty: 6 0RF Rx Instructions: For 250 mg dose pack: take 500 mg today (day 1), then 250 mg for 4 days (days 2-5) methylprednisolone [Medrol (Shahzad)] 4 mg tablets,dose pack See Rx Instructions .Route .COMPLEX 6 Days Qty: 21 0RF Rx Instructions: taper pack; No Action aspirin [Adult Low Dose Aspirin] 81 mg tablet,delayed release (DR/EC) 81 mg PO DAILY omeprazole 40 mg capsule,delayed release(DR/EC) 40 mg PO DAILY Qty: 30 5RF metoprolol succinate [Toprol XL] 50 mg tablet extended release 24 hr 50 mg PO BID Qty: 60 5RF hydrochlorothiazide 12.5 mg tablet See Rx Instructions .ROUTE .COMPLEX Qty: 90 3RF Dose Instruction: TAKE ONE TABLET BY MOUTH EVERY DAY Rx Instructions: TAKE ONE TABLET BY MOUTH EVERY DAY venlafaxine 37.5 mg capsule,extended release 24hr See Rx Instructions .ROUTE .COMPLEX Qty: 90 1RF Dose Instruction: TAKE 1 CAPSULE BY MOUTH ONCE DAILY Rx Instructions: TAKE 1 CAPSULE BY MOUTH ONCE DAILY atorvastatin 80 mg tablet See Rx Instructions .ROUTE .COMPLEX Qty: 90 3RF Dose Instruction: TAKE 1 TABLET BY MOUTH AT BEDTIME Rx Instructions: TAKE 1 TABLET BY MOUTH AT BEDTIME losartan 25 mg tablet See Rx Instructions .ROUTE .COMPLEX Qty: 90 1RF Dose Instruction: TAKE 1 TABLET BY MOUTH ONCE DAILY Rx Instructions: TAKE 1 TABLET BY MOUTH ONCE DAILY spironolactone 25 mg tablet See Rx Instructions .ROUTE .COMPLEX Qty: 90 2RF Dose Instruction: TAKE 1 TABLET BY MOUTH ONCE DAILY Rx Instructions: TAKE 1 TABLET BY MOUTH ONCE DAILY Referrals Follow up/Referrals: Florencio Goodman APRN [Primary Care Provider] - See instructions Activity Restrictions/Add. Instructions Additional Instructions/Restrictions: *Monitor Temp, Over the counter Motrin or Tylenol as directed/as needed Tylenol every 4 hours and Motrin every 6 hours (as long as your family doctor has told you that you can take it) for fever or pain. and straight to ER if unable to lower temp less than 101.0 after medication given *Warm salt water gargles may help to soothe the throat *Throat Lozenges? *Warm fluids like tea with honey may help to soothe the throat? *Sleep elevated *Humidifier/Vaporizer Your throat swab was sent for culture. Those results are typically sent to your primary care. Be sure to follow up in 2-3 days with your family doctor/primary care physician if no improvement so they can review those result and treat if necessary. If you don?t have a primary care doctor, I recommend you get one but in the mean time, you will have to return to a walk in clinic Follow up IMMEDIATELY for new or worsening symptoms or no Noticeable improvement over the next 48-72 hours. 911 for difficulty breathing or swallowing Clinical Impressions Clinical Impression: Sinusitis Instructions Patient Instructions: DI for Sinusitis, Middle Ear Infection [place]charge ED Provider: Crys Patel [facility] [place] Stated complaint: Right earache,sinur congestion Mode of Arrival: Ambulatory Source of Information: Patient Limitations: No Limitations Time Seen by Provider: 12/14/23 15:51 Description of Symptoms (Recalled from Triage Doc. by RN): PATIENT C/O RIGHT EAR PAIN AND SINUS PRESSURE X 4 DAYS HEENT Symptoms (Recalled from RN notes): Yes Resp Symptoms (Recalled from RN notes): No Skin Symptoms (Recalled from RN notes): No MS Symptoms (Recalled from RN notes): No Functional Status (Recalled from RN notes): WNL History of Present Illness Provider Complaint: Patient states that she wasnt sure if she was having an ear infection or sinus infection States that she has been having pain in her right ear and pain and pressure in her sinuses for the last 4 days States also today her throat has been hurting and feeling scratchy so today when she wasnt feeling any better she came in to get checked Related Data Home Medications Medication Instructions Recorded Confirmed aspirin 81 mg tablet,delayed 81 mg PO DAILY thinner 12/22/17 11/25/23 release (Adult Low Dose Aspirin) Previous Rx's Medication Instructions Recorded hydrochlorothiazide 12.5 mg tablet See Rx Instructions .Route 02/18/23 .COMPLEX #90 tabs venlafaxine 37.5 mg See Rx Instructions .Route 07/20/23 capsule,extended release 24 hr .COMPLEX #90 caps atorvastatin 80 mg tablet See Rx Instructions .Route 08/17/23 .COMPLEX #90 ea losartan 25 mg tablet See Rx Instructions .Route 08/17/23 .COMPLEX #90 tabs spironolactone 25 mg tablet See Rx Instructions .Route 09/30/23 .COMPLEX #90 tabs metoprolol succinate 50 mg 50 mg PO BID #60 tabs 11/09/23 tablet,extended release 24 hr (Toprol XL) omeprazole 40 mg capsule,delayed 40 mg PO DAILY #30 caps 11/09/23 release azithromycin 250 mg tablet See Rx Instructions PO .COMPLEX 5 12/14/23 (Zithromax Z-Shahzad) days #6 tabs methylprednisolone 4 mg tablets in See Rx Instructions .Route 12/14/23 a dose pack (Medrol (Shahzad)) .COMPLEX 6 days #21 tabs Allergies Allergy/AdvReac Type Severity Reaction Status Date / Time No Known Allergies Allergy Verified 11/25/23 10:50 Worker's Comp Is this a Worker's Comp case?: No [facility] Disclaimer: The information contained in this section may have been updated after the patient was seen, as this information can be updated by other users. Medical History Hypertension Anxiety Atypical angina Abnormal cardiovascular stress test Abnormal electrocardiography Tobacco dependence syndrome RLS (restless legs syndrome) Sinus tachycardia Edema Ex-smoker for less than 1 year Dyspnea HLD (hyperlipidemia) HHD (hypertensive heart disease) Carotid artery disease Surgical History History of cardiac cath History of salpingectomy Social History Smoking Status: Current every day smoker tobacco type: cigarettes packs per day: 1 second hand exposure: No alcohol intake: never substance use type: denies use current occupational status: other Travel in the last 8 weeks: Inside the [place] household members: children and other housing: house current occupational exposures/hazards: No caffeine: Yes ROS Obtained: Yes All systems reviewed & no additional complaints except as documented and Yes Systems reviewed as appropriate & no additional complaints except as documented Constitutional Constitutional: Reports system reviewed and no additional complaints, except as documented and Reports as per HPI ENT Ears, Nose, Mouth, and Throat: Reports system reviewed and no additional complaints, except as documented, Reports as per HPI, Reports otalgia, Reports sinus pain, Reports sinus pressure and Reports sore throat Cardiovascular Cardiovascular: Reports system reviewed and no additional complaints, except as documented and Reports as per HPI Respiratory Respiratory: Reports system reviewed and no additional complaints, except as documented and Reports as per HPI Gastrointestinal Gastrointestingal: Reports system reviewed and no additional complaints, except as documented and as per HPI Physical Exam General General appearance: alert and in no apparent distress ENT ENT exam: Present mucous membranes moist Expanded ENT Exam TM/Canal exam: Right TM: erythema and bulging Nose exam: Present sinus tenderness Throat exam: Present tonsillar erythema Respiratory Respiratory exam: Present normal lung sounds bilaterally; Absent respiratory distress or wheezes Cardiovascular Cardiovascular exam: Present regular rate, normal rhythm and normal heart sounds Neurological Exam Neurological exam: Present alert, oriented X3 and normal gait Medical Decision Making Marky Inquiry Pt receiving controlled substance: No Marky was queried for this patient: No Vital Signs: 12/14/23 15:20 Temperature 97.8 F Temperature Source Oral Pulse Rate [Left Brachial] 84 Respiratory Rate 18 Blood Pressure [Left Arm] 138/78 Blood Pressure Mean [Left Arm] 98 Blood Pressure Source [Left Arm] Automatic Cuff Blood Pressure Position [Left Arm] Sitting 02 Sat by Pulse Oximetry 99 Oxygen Delivery Method Room Air Lab Data Lab results reviewed: Yes I reviewed the patient's lab results. Medical Decision Narrative: Patient states that she has take azithromycin and Medrol in the past without complications or reactions
[2023-12-14 16:18] LABS: UTC Strep Screen (Rapid) Negative (Negative)
[2023-12-14 16:26] VITALS: BP 138/78; PULSE 84; RESP 18; TEMP 36.6; O2SAT 99
== END 2023-12-14 16:32 | disposition home or self-care (01) ==
PROVIDERS: Emergency Provider Nurse Practitioner; PCP Nurse Practitioner Family
DX: J01.90 Acute sinusitis, unspecified (principal); H92.01 Otalgia, right ear; R07.0 Pain in throat; F17.210 Nicotine dependence, cigarettes, uncomplicated; I11.9 Hypertensive heart disease without heart failure; I25.119 Atherosclerotic heart disease of native coronary artery with unspecified angina pectoris; E78.5 Hyperlipidemia, unspecified
CPT/HCPCS: 87880; 99212; 99214; G0463

== ENCOUNTER 2024-01-18 19:26 | Emergency (ER) | payer OTHER, SELFPAY ==
--- NOTE | 2024-01-18 19:40 | ED_ITS ---
Discharge Plan Disposition Patient Disposition: Home, Self-Care Condition: Good Prescriptions Prescriptions: New benzonatate 100 mg capsule 100 mg PO TIDP PRN (Reason: Cough) Qty: 30 0RF methylprednisolone 4 mg Tablets,Dose Pack 4 mg PO DIRECTED 6 Days Qty: 21 0RF Rx Instructions: Take 1 pack as directed for 6 days ondansetron 4 mg Tablet,Disintegrating 4 mg PO Q8H PRN (Reason: Nausea) Qty: 12 0RF No Action aspirin [Adult Low Dose Aspirin] 81 mg tablet,delayed release (DR/EC) 81 mg PO DAILY omeprazole 40 mg capsule,delayed release(DR/EC) 40 mg PO DAILY Qty: 30 5RF metoprolol succinate [Toprol XL] 50 mg tablet extended release 24 hr 50 mg PO BID Qty: 60 5RF hydrochlorothiazide 12.5 mg tablet See Rx Instructions .ROUTE .COMPLEX Qty: 90 3RF Dose Instruction: TAKE ONE TABLET BY MOUTH EVERY DAY Rx Instructions: TAKE ONE TABLET BY MOUTH EVERY DAY venlafaxine 37.5 mg capsule,extended release 24hr See Rx Instructions .ROUTE .COMPLEX Qty: 90 1RF Dose Instruction: TAKE 1 CAPSULE BY MOUTH ONCE DAILY Rx Instructions: TAKE 1 CAPSULE BY MOUTH ONCE DAILY atorvastatin 80 mg tablet See Rx Instructions .ROUTE .COMPLEX Qty: 90 3RF Dose Instruction: TAKE 1 TABLET BY MOUTH AT BEDTIME Rx Instructions: TAKE 1 TABLET BY MOUTH AT BEDTIME losartan 25 mg tablet See Rx Instructions .ROUTE .COMPLEX Qty: 90 1RF Dose Instruction: TAKE 1 TABLET BY MOUTH ONCE DAILY Rx Instructions: TAKE 1 TABLET BY MOUTH ONCE DAILY spironolactone 25 mg tablet See Rx Instructions .ROUTE .COMPLEX Qty: 90 2RF Dose Instruction: TAKE 1 TABLET BY MOUTH ONCE DAILY Rx Instructions: TAKE 1 TABLET BY MOUTH ONCE DAILY Referrals Follow up/Referrals: Florencio Goodman APRN [Primary Care Provider] - See instructions Activity Restrictions/Add. Instructions Additional Instructions/Restrictions: Drink plenty of fluids. Take tylenol for pain or fever. Take the medications as directed. Follow up with your regular doctor. GO TO THE ER FOR ANY WORSENING SYMPTOMS Clinical Impressions Clinical Impression: Acute viral syndrome Stand Alone Forms Stand Alone Forms: Work/School Release Instructions Patient Instructions: DI for Viral Syndrome Discharge ED Provider: Leonardo Reilly [facility] General Stated complaint: Fever,body aches Time Seen by Provider: 01/18/24 19:40 History of Present Illness Provider Complaint: She states that for the past 2 days she has had worsening body aches, chills, malaise, and low grade fever. Related Data Home Medications Medication Instructions Recorded Confirmed aspirin 81 mg tablet,delayed 81 mg PO DAILY thinner 12/22/17 01/18/24 release (Adult Low Dose Aspirin) Previous Rx's Medication Instructions Recorded hydrochlorothiazide 12.5 mg tablet See Rx Instructions .Route 02/18/23 .COMPLEX #90 tabs venlafaxine 37.5 mg See Rx Instructions .Route 07/20/23 capsule,extended release 24 hr .COMPLEX #90 caps atorvastatin 80 mg tablet See Rx Instructions .Route 08/17/23 .COMPLEX #90 ea losartan 25 mg tablet See Rx Instructions .Route 08/17/23 .COMPLEX #90 tabs spironolactone 25 mg tablet See Rx Instructions .Route 09/30/23 .COMPLEX #90 tabs metoprolol succinate 50 mg 50 mg PO BID #60 tabs 11/09/23 tablet,extended release 24 hr (Toprol XL) omeprazole 40 mg capsule,delayed 40 mg PO DAILY #30 caps 11/09/23 release benzonatate 100 mg capsule 100 mg PO TIDP PRN Cough #30 caps 01/18/24 methylprednisolone 4 mg tablets in 4 mg PO DIRECTED 6 days #21 tabs 01/18/24 a dose pack ondansetron 4 mg disintegrating 4 mg PO Q8H PRN Nausea #12 tabs 01/18/24 tablet Allergies Allergy/AdvReac Type Severity Reaction Status Date / Time No Known Allergies Allergy Verified 01/18/24 19:53 [facility] Disclaimer: The information contained in this section may have been updated after the patient was seen, as this information can be updated by other users. Medical History Hypertension Anxiety Atypical angina Abnormal cardiovascular stress test Abnormal electrocardiography Tobacco dependence syndrome RLS (restless legs syndrome) Sinus tachycardia Edema Ex-smoker for less than 1 year Dyspnea HLD (hyperlipidemia) HHD (hypertensive heart disease) Carotid artery disease Surgical History History of cardiac cath History of salpingectomy Social History Smoking Status: Current every day smoker tobacco type: cigarettes packs per day: 1 second hand exposure: No alcohol intake: never substance use type: denies use current occupational status: other Travel in the last 8 weeks: [place] the [place] household members: children and other housing: house current occupational exposures/hazards: No caffeine: Yes ROS Obtained: Yes All systems reviewed & no additional complaints except as documented Constitutional Constitutional: Reports chills and Reports fever(s) Eyes Eyes: Denies eye discharge ENT Ears, Nose, Mouth, and Throat: Reports as per HPI Cardiovascular Cardiovascular: Denies chest pain Respiratory Respiratory: Denies chest congestion and Reports cough Gastrointestinal Gastrointestingal: Reports nausea; Denies abdominal pain, constipation, cramping, diarrhea or vomiting Musculoskeletal Musculoskeletal: Denies arthralgias Integumentary/Breasts Skin/Breast: Denies rash Neurologic Neurologic: Denies paresthesias Physical Exam General General appearance: alert and in no apparent distress Head Head exam: atraumatic, normocephalic and normal inspection Eye Eye exam: Present normal appearance, PERRL and EOMI ENT ENT exam: Present normal exam, normal oropharynx, mucous membranes moist, TM's normal bilaterally and normal external ear exam Neck Neck exam: Present normal inspection, full ROM and trachea midline; Absent meningismus or lymphadenopathy Chest Chest inspection: Present normal inspection and symmetric chest wall rise; Absent tenderness Respiratory Respiratory exam: Present normal lung sounds bilaterally; Absent respiratory distress Cardiovascular Cardiovascular exam: Present regular rate and normal rhythm; Absent JVD Abdominal Exam Abdominal exam: Present soft and normal bowel sounds; Absent distention, tenderness or guarding Extremities Exam Extremities exam: Present normal inspection, full ROM and normal capillary refill; Absent calf tenderness Back Exam Back exam: Present normal inspection; Absent tenderness Neurological Exam Neurological exam: Present alert and oriented X3 Psychiatric Psychiatric exam: Present normal affect and normal mood Skin Skin exam: Present warm, dry, intact and normal color Lymphatic Lymphatic Findings: no adenopathy Medical Decision Making Medical Records Medical records reviewed: No I reviewed the patient's medical records. Marky Inquiry Pt receiving controlled substance: No Lab Data Lab results reviewed: Yes I reviewed the patient's lab results.
[2024-01-18 19:45] VITALS: BP 120/81; PULSE 81; RESP 18; TEMP 36.8; O2SAT 96; BMI 30.5
[2024-01-18 19:59] LABS: UTC Influenza A Antigen Negative (Negative)
[2024-01-18 19:59] LABS: UTC Strep Screen (Rapid) Negative (Negative)
[2024-01-18 20:00] LABS: UTC Influenza B Antigen Negative (Negative)
[2024-01-18 20:21] VITALS: BP 120/81; PULSE 81; RESP 18; TEMP 36.8; O2SAT 96
== END 2024-01-18 20:21 | disposition home or self-care (01) ==
PROVIDERS: Emergency Provider Nurse Practitioner Family; PCP Nurse Practitioner Family
DX: R50.9 Fever, unspecified (principal); M79.18 Myalgia, other site; R53.81 Other malaise; B34.9 Viral infection, unspecified
CPT/HCPCS: 87804; 87880; 99212; 99214; G0463

== ENCOUNTER → 2024-02-22 08:33 | Outpatient (CLI) | payer SELFPAY | PROVIDERS: PCP Nurse Practitioner Family; Visit Provider Nurse Practitioner Family | DX: G47.33 Obstructive sleep apnea (adult) (pediatric) (principal); G47.36 Sleep related hypoventilation in conditions classified elsewhere | CPT/HCPCS: G0399 ==

== ENCOUNTER 2024-04-07 13:39 | Outpatient (CLI) | payer OTHER, SELFPAY ==
--- NOTE | 2024-04-07 13:46 | XR_ITS ---
FINAL REPORT CLINICAL HISTORY: lt knee pain COMPARISON: 11/26/2016 FINDINGS: AP, lateral and oblique views of the left knee were obtained. There is no acute osseous abnormality of the left knee. There is degenerative joint disease. Small joint effusion is identified. IMPRESSION: Degenerative joint disease and small joint effusion. Reviewed, Interpreted and Dictated by Marisa Manuel MD Transcribed by Reshma Grant Authenticated and [facility]
--- NOTE | 2024-04-07 13:46 | XR_ITS ---
FINAL REPORT CLINICAL HISTORY: Rt Knee Pain FINDINGS: AP, lateral and oblique views of the right knee were obtained. There is no prior exam for comparison. There is no acute osseous abnormality of the right knee. Mild degenerative joint disease is identified. The soft tissues are normal. There is no joint effusion. IMPRESSION: Degenerative joint disease. Reviewed, Interpreted and Dictated by Marisa Manuel MD Transcribed by Reshma Grant Authenticated and [facility]
== END 2024-04-07 23:59 | disposition home or self-care (01) ==
LOC: RAD 13:42
PROVIDERS: PCP Nurse Practitioner Family; Visit Provider Orthopaedic Surgery
DX: M17.0 Bilateral primary osteoarthritis of knee (principal); M25.561 Pain in right knee; M25.562 Pain in left knee
CPT/HCPCS: 73562

== ENCOUNTER 2024-06-23 16:50 | Emergency (ER) | payer OTHER, SELFPAY ==
[2024-06-23 17:03] VITALS: BP 123/85; PULSE 81; RESP 20; TEMP 37; O2SAT 96; BMI 29.7
--- NOTE | 2024-06-23 17:05 | ED_ITS ---
Discharge Plan Disposition Patient Disposition: Home, Self-Care Condition: Good Prescriptions Prescriptions: New ibuprofen [IBU] 800 mg tablet 800 mg PO Q8HP PRN (Reason: Moderate Pain) Qty: 30 0RF amoxicillin 875 mg tablet 875 mg PO Q12H Qty: 20 0RF No Action atorvastatin 80 mg tablet 80 mg PO DAILY metoprolol succinate 50 mg tablet extended release 24 hr 50 mg PO DAILY omeprazole 40 mg capsule,delayed release(DR/EC) 40 mg PO DAILY spironolactone 25 mg tablet 25 mg PO DAILY losartan 25 mg tablet 25 mg PO DAILY hydrochlorothiazide 12.5 mg tablet 12.5 mg PO DAILY Referrals Follow up/Referrals: Florencio Goodman APRN [Primary Care Provider] - See instructions Activity Restrictions/Add. Instructions Additional Instructions/Restrictions: Take the medications as directed. Follow up with your dentist as discussed. Follow up with your regular doctor. GO TO THE ER FOR ANY WORSENING SYMPTOMS Clinical Impressions Clinical Impression: Dental abscess, Pain, dental, Jaw pain Instructions Patient Instructions: Tooth Abscess, DI for Tooth Abscess, Ibuprofen, Amoxicillin Print Language Print Language: Frisian Discharge ED Provider: Leonardo Reilly [facility] General Stated complaint: Toothache Mode of Arrival: Ambulatory Source of Information: Patient Time Seen by Provider: 06/23/24 17:05 Description of Symptoms (Recalled from Triage Doc. by RN): RIGHT TOOTHACHE, PAIN INTO JAW, REDDNESS AND SOME FACIAL SWELLING HEENT Symptoms (Recalled from RN notes): Yes Resp Symptoms (Recalled from RN notes): No Skin Symptoms (Recalled from RN notes): No MS Symptoms (Recalled from RN notes): No Functional Status (Recalled from RN notes): WNL History of Present Illness Provider Complaint: She has a history of multiple dental cavities and broken teeth. She states that over the past 3 days she has began to develop worsening right lower jaw dental pain with swelling of the gums around the tooth. She has an appointment coming up with her dentist to have the tooth pulled. Related Data Home Medications ?Medication ?Instructions ?Recorded ?Confirmed atorvastatin 80 mg tablet 80 mg PO DAILY 06/23/24 06/23/24 hydrochlorothiazide 12.5 mg tablet 12.5 mg PO DAILY 06/23/24 06/23/24 losartan 25 mg tablet 25 mg PO DAILY 06/23/24 06/23/24 metoprolol succinate 50 mg 50 mg PO DAILY 06/23/24 06/23/24 tablet,extended release 24 hr omeprazole 40 mg capsule,delayed 40 mg PO DAILY 06/23/24 06/23/24 release spironolactone 25 mg tablet 25 mg PO DAILY 06/23/24 06/23/24 Previous Rx's ?Medication ?Instructions ?Recorded amoxicillin 875 mg tablet 875 mg PO Q12H #20 tabs 06/23/24 ibuprofen 800 mg tablet (IBU) 800 mg PO Q8HP PRN Moderate Pain 06/23/24 #30 tabs Allergies Allergy/AdvReac Type Severity Reaction Status Date / Time No Known Allergies Allergy Verified 05/16/24 11:23 Worker's Comp Is this a Worker's Comp case?: No [facility] Disclaimer: The information contained in this section may have been updated after the patient was seen, as this information can be updated by other users. Medical History Hypertension Anxiety Atypical angina Abnormal cardiovascular stress test Abnormal electrocardiography Tobacco dependence syndrome RLS (restless legs syndrome) Sinus tachycardia Edema Ex-smoker for less than 1 year Dyspnea HLD (hyperlipidemia) HHD (hypertensive heart disease) Carotid artery disease Surgical History History of cardiac cath History of salpingectomy Family History Father Alcoholism Coronary artery disease Mother Diabetes FHx: mental illness Anxiety Hyperlipidemia Sister FHx: mental illness Depression and anxiety Brother FHx: mental illness Depression and anxiety. Social History Smoking Status: Current every day smoker tobacco type: cigarettes packs per day: 1 second hand exposure: No alcohol intake: never substance use type: denies use current occupational status: other Travel in the last 8 weeks: [place] the [place] household members: children and other housing: house current occupational exposures/hazards: No caffeine: Yes ROS Obtained: Yes All systems reviewed & no additional complaints except as documented Constitutional Constitutional: Denies chills and Denies fever(s) Eyes Eyes: Denies eye discharge ENT Ears, Nose, Mouth, and Throat: Reports as per HPI, Denies dizziness, Denies otalgia and Denies sore throat Cardiovascular Cardiovascular: Denies chest pain Respiratory Respiratory: Denies shortness of breath, Denies chest congestion, Denies cough, Denies stridor and Denies wheezing Gastrointestinal Gastrointestingal: Denies nausea or vomiting Musculoskeletal Musculoskeletal: Reports system reviewed and no additional complaints, except as documented and Denies arthralgias Integumentary/Breasts Skin/Breast: Denies rash Neurologic Neurologic: Denies dizziness and Denies paresthesias Allergic/Immunologic Allergic/Immunologic: Denies wheezing Physical Exam General General appearance: alert and in no apparent distress Head Head exam: atraumatic, normocephalic and normal inspection Eye Eye exam: Present normal appearance, PERRL and EOMI ENT ENT exam: Present mucous membranes moist, TM's normal bilaterally and normal external ear exam Expanded ENT Exam Nose exam: Absent sinus tenderness Nasal speculum exam: Bilateral: normal Mouth exam: Present normal external inspection; Absent drooling Teeth exam: Present dental caries, fractured tooth #, dental tenderness # and gingival swelling Throat exam: Present normal inspection Neck Neck exam: Present normal inspection, full ROM and trachea midline; Absent meningismus or lymphadenopathy Chest Chest inspection: Present normal inspection and symmetric chest wall rise; Absent tenderness Respiratory Respiratory exam: Present normal lung sounds bilaterally; Absent respiratory distress Cardiovascular Cardiovascular exam: Present regular rate and normal rhythm; Absent JVD Abdominal Exam Abdominal exam: Present soft and normal bowel sounds; Absent distention, tenderness or guarding Extremities Exam Extremities exam: Present normal inspection, full ROM and normal capillary refill; Absent calf tenderness Back Exam Back exam: Present normal inspection; Absent tenderness Neurological Exam Neurological exam: Present alert and oriented X3 Psychiatric Psychiatric exam: Present normal affect and normal mood Skin Skin exam: Present warm, dry, intact and normal color Lymphatic Lymphatic Findings: no adenopathy Medical Decision Making Medical Records Medical records reviewed: No I reviewed the patient's medical records. Screening: Per USPSTF and CDC recommendations, given the prevalence of disease in our region, it is our hospital?s policy to screen for HIV and viral Hepatitis for all patients aged 18 and over and those with ongoing risk factors. Marky Inquiry Pt receiving controlled substance: No Vital Signs: 06/23/24 17:03 Temperature 98.6 F Temperature Source Oral Pulse Rate [Left Radial] 81 Respiratory Rate 20 Blood Pressure [Left Arm] 123/85 Blood Pressure Mean [Left Arm] 97 02 Sat by Pulse Oximetry 96
[2024-06-23 17:32] VITALS: BP 123/85; PULSE 81; RESP 20; TEMP 37
== END 2024-06-23 17:34 | disposition home or self-care (01) ==
PROVIDERS: Emergency Provider Nurse Practitioner Family; PCP Nurse Practitioner Family
DX: K04.7 Periapical abscess without sinus (principal)
CPT/HCPCS: 99213; G0381

== ENCOUNTER 2024-10-19 09:01 | Outpatient (CLI) | payer OTHER, SELFPAY ==
[2024-10-19 17:59] LABS: Basophils # 0.1 K/mm3 (0-0.2); Basophils % 0.6 % (0.1-2.0); Eosinophils # 0.7 K/mm3 (0.0-0.4); Eosinophils % 4.1 % (0.1-12.0); Hematocrit 47.3 % (37.0-47.0); Hemoglobin 15.8 g/dL (12.2-16.2); Lymphocytes # 3.1 K/mm3 (0.7-4.5); Lymphocytes % 19.3 % (10-50); Mean Corpuscular HGB Conc 33.4 g/dL (31.8-35.4); Mean Corpuscular Hemoglobin 30.7 pg (27.0-31.2); Mean Corpuscular Volume 91.8 fl (81-99); Monocytes # 0.6 K/mm3 (0.1-1.0); Neutrophils # 11.5 K/mm3 (1.8-7.8); Neutrophils % 71.6 % (37.0-80.0); Platelet Count 395 K/mm3 (142-424); Red Blood Count 5.15 M/mm3 (4.20-5.40)
[2024-10-19 18:02] LABS: MANUAL DIFFERENTIAL MANUAL DIFFERENTIAL (MANUAL DIFF)
[2024-10-19 18:14] LABS: Eosinophils % 4 % (0-3); Lymphocytes % 15 % (10-50); Monocytes % 7 % (2-9); Neutrophils % 74 % (42-76); Platelet Estimate Normal; RBC Morphology Normal; Total Cells Counted 100
[2024-10-19 18:38] LABS: Alanine Aminotransferase 27 U/L (12-78); Albumin Level 4.2 g/dl (3.5-5.0); Alkaline Phosphatase 111 U/L (38-126); Anion Gap 15.5 mEq/L (5-15); Aspartate Amino Transferase 33 U/L (14-36); Bilirubin,Direct 0.1 mg/dl (0.0-0.4); Blood Urea Nitrogen 15 mg/dl (7-17); Calcium 9.6 mg/dl (8.4-10.2); Carbon Dioxide 25 mmol/L (22.0-30.0); Chloride 103 mmol/L (98-107); Chol/HDL Ratio 3.7 (1-3.5); Cholesterol 156 mg/dl (140-200); Estimated Glomerular Filt Rate 88 ml/min (>60); GFR (African American) 106 ML/MIN (>60); Glucose 96 mg/dl (74-100); HDL Cholesterol 42 mg/dl (40-60); Potassium 4.5 mmoL/L (3.5-5.1); Sodium 139 mmol/L (136-145); Total Protein,Serum 6.6 g/dl (6.3-8.2); Triglycerides 151 mg/dl (30-150); VLDL Cholesterol 30 mg/dL (0-40)
[2024-10-19 18:39] LABS: Bilirubin,Total 0.1 mg/dl (0.2-1.3); Free T4 (Free Thyroxine) 1.09 ng/dl (0.78-2.19)
[2024-10-19 18:51] LABS: Direct LDL Cholesterol 93.69 mg/dL (100-129)
== END 2024-10-19 23:59 | disposition home or self-care (01) ==
LOC: LAB.DROPOF 10-20 09:02
PROVIDERS: PCP Family Medicine; Visit Provider Family Medicine
DX: I10 Essential (primary) hypertension (principal); E78.2 Mixed hyperlipidemia; Z72.0 Tobacco use
CPT/HCPCS: 80048; 80061; 80076; 84439; 85007; 85025; 85027

== ENCOUNTER 2024-10-20 14:25 | Outpatient (CLI) | payer OTHER, SELFPAY ==
[2024-10-20 14:30] LABS: Microscopic, Urine URINE MICROSCOPIC (MICROSCOPIC)
--- NOTE | 2024-10-20 14:36 | XR_ITS ---
FINAL REPORT TECHNIQUE: Chest PA & Lateral CLINICAL HISTORY: Nonspecific cough COMPARISON: None FINDINGS: 2 views of the chest were performed. The heart size is normal. The mediastinum is within normal limits. The lungs are clear. There are no pleural effusions. There is no pneumothorax. There is mild thoracic scoliosis convex to the right. IMPRESSION: No acute cardiopulmonary process. Reviewed, Interpreted and Dictated by Vivek Larkin MD Transcribed by Farideh Purdy Authenticated and [facility]
[2024-10-20 15:11] LABS: Appearance,Urine CLEAR (Clear); Bilirubin,Urine Negative (Negative); Blood, Urine Negative (Negative); Color,Urine YELLOW (Yellow); Glucose,Urine (UA) Negative (Negative); Ketones,Urine Negative (Negative); Leukocyte Esterase,Urine Negative (Negative); Nitrate,Urine Negative (Negative); Protein,Urine Negative (Negative); Urobilinogen,Urine 0.2 EU/dl (0.2)
[2024-10-20 15:36] LABS: RBC,Urine Occasional #/hpf (0-3); Squamous Epithelial Cell,Urine Occasional #/hpf (0-5); WBC,Urine Occasional #/hpf (0-3)
== END 2024-10-20 23:59 | disposition home or self-care (01) ==
LOC: LAB 14:27
PROVIDERS: PCP Nurse Practitioner Family; Visit Provider Family Medicine
DX: R35.0 Frequency of micturition (principal); R05.9 Cough, unspecified
CPT/HCPCS: 71046; 81001; 87086

== ENCOUNTER 2024-11-14 18:05 | Outpatient (CLI) | payer OTHER, SELFPAY ==
[2024-11-14 20:59] LABS: Coronavirus 19, PCR Not Detected (NotDetected); Human Rhinovirus Not Detected (NotDetected); Influenza A, PCR Not Detected (NotDetected); Influenza B, PCR Not Detected (NotDetected); Respiratory Syncytial Virus Not Detected (NotDetected)
== END 2024-11-14 23:59 | disposition home or self-care (01) ==
LOC: LAB.DROPOF 11-15 18:07
PROVIDERS: PCP Nurse Practitioner; Visit Provider Nurse Practitioner
DX: B34.9 Viral infection, unspecified (principal); R50.9 Fever, unspecified; R52 Pain, unspecified
CPT/HCPCS: 87631

== ENCOUNTER 2025-01-16 11:22 | Outpatient (CLI) | payer OTHER, SELFPAY ==
[2025-01-16 11:40] LABS: Basophils # 0.1 K/mm3 (0-0.2); Basophils % 0.8 % (0.1-2.0); Eosinophils # 0.6 Kmm3 (0.0-0.4); Eosinophils % 5.1 % (0.1-12.0); Hematocrit 43.5 % (37.0-47.0); Hemoglobin 14.6 g/dL (12.2-16.2); Lymphocytes # 3.4 K/mm3 (0.7-4.5); Lymphocytes % 30.4 % (10-50); Mean Corpuscular HGB Conc 33.6 g/dL (31.8-35.4); Mean Corpuscular Hemoglobin 30.3 pg (27.0-31.2); Mean Corpuscular Volume 90.2 fl (81-99); Mean Platelet Volume 9.2 fl (7.4-10.4); Monocytes # 0.7 K/mm3 (0.1-1.0); Monocytes % 6.4 % (1.7-9.3); Neutrophils # 6.3 K/mm3 (1.8-7.8); Neutrophils % 56.9 % (37.0-80.0); Nucleated Red Blood Cells # 0 10^3/uL; Nucleated Red Blood Cells % 0 %; Platelet Count 365 K/mm3 (142-424); Red Blood Count 4.82 M/mm3 (4.20-5.40); Red Cell Distribution Width 13.8 % (11.5-17.5); Red Cell Distribution Width-SD 45.7 fL; White Blood Count 11.1 K/mm3 (4.8-10.8)
[2025-01-16 12:04] LABS: Albumin Level 3.8 g/dl (3.5-5.0); Chloride 102 mmol/L (98-107); Potassium 4.4 mmoL/L (3.5-5.1); Sodium 134 mmol/L (136-145)
[2025-01-16 12:07] LABS: Alanine Aminotransferase 32 U/L (12-78); Albumin/Globulin Ratio 1.5 (1.1-1.8); Alkaline Phosphatase 109 U/L (38-126); Anion Gap 8.4 mEq/L (5-15); Aspartate Amino Transferase 33 U/L (14-36); Bilirubin,Total 0.2 mg/dl (0.2-1.3); Blood Urea Nitrogen 8 mg/dl (7-17); Carbon Dioxide 28 mmol/L (22.0-30.0); Estimated Glomerular Filt Rate 88 ml/min (>60); GFR (African American) 106 ML/MIN (>60); Globulin 2.6 g/dL (1.3-3.2); Glucose 91 mg/dl (74-100); Total Protein,Serum 6.4 g/dl (6.3-8.2)
[2025-01-16 12:25] LABS: Free T4 (Free Thyroxine) 0.92 ng/dl (0.78-2.19)
[2025-01-16 12:40] LABS: Thyroid Stimulating Hormone 2.01 uIU/mL (0.465-4.68)
== END 2025-01-16 23:59 | disposition home or self-care (01) ==
LOC: LAB 11:24
PROVIDERS: PCP Family Medicine; Visit Provider Nurse Practitioner Acute Care
DX: F33.1 Major depressive disorder, recurrent, moderate (principal)
CPT/HCPCS: 36415; 80053; 84439; 84443; 85025

== ENCOUNTER → 2025-05-16 09:19 | Outpatient (REF) | payer SELFPAY ==
--- OUTSIDE RECORDS SUMMARY | 2025-05-16 09:24 | XMS_ITS | Clinical Summary ---
Author Organization [facility] Address [address] [place] [address] Care Team Providers Care Religion Department Chair Name Role Phone Anastasia De Luna Alexsandra CHOI Primary Care Provider [phone] Allergies No known active allergies Medications Aspirin Buf,CaCarb-MgCa rb-MgO, 81 MG tablet TAKE 1 TABLET DAILY. 08/17/2019 Active atorvastatin (Lipitor) 80 MG tablet TAKE 1 TABLET BY MOUTH AT BEDTIME 12/04/2020 Active hydroCHLOROthia zide (Microzide) 12.5 MG capsule TAKE 1 CAPSULE BY MOUTH DAILY 04/25/2020 Active losartan (Cozaar) 25 MG tablet TAKE 1 TABLET BY MOUTH DAILY 04/25/2020 Active metoprolol succinate XL (Toprol-XL) 50 MG 24 hr tablet 1 tablet (50 mg). Take 1 twice per day 04/25/2020 Active spironolactone (Aldactone) 25 MG tablet TAKE 1 TABLET BY MOUTH DAILY 04/25/2020 Active venlafaxine (Effoxor) 37.5 MG tablet TAKE 1 TABLET DAILY. 08/17/2019 Active pantoprazole (ProtoNix) 20 MG EC tablet Take 1 tablet (20 mg) by mouth 1 (one) time each day before breakfast. Do not crush, chew, or split. Active Desvenlafaxine ER 50 MG tablet sustained-relea se 24 hour Take 50 mg by mouth 1 (one) time each day. Active omeprazole (PriLOSEC) [address] capsule Take 1 capsule (40 mg) by mouth 1 (one) time each day. 11/09/2023 Active Active Problems Problem Noted Date Diagnosed Date Stenosis of left subclavian artery 04/24/2021 CAD (coronary artery disease) 11/01/2019 Carotid artery stenosis 11/01/2019 Hypertensive heart disease 11/01/2019 Hypertriglyceridemia 11/01/2019 Occlusion and stenosis of bilateral carotid yesenia jerri 11/01/2019 Tobacco abuse 11/01/2019 Thrombocytosis 08/17/2019 Arthralgia 08/17/2019 Immunizations Immunization Administration Dates Next Due TD (adult), 2 Lf tetanus tox oid, preservative free, adsorbed 11/21/1996 Tdap 12/07/2007 Family History Medical History Relation Name Comments Conversions - Other Father Carotid artery disease Stroke Father Asthma Mother COPD Mother Diabetes Mother Heart failure Mother Peripheral arterial disease Mother Conversions - Other Sister 1 Carotid artery disease Coronary artery disease Sister 2 Relation Name Status Comments Father Mother Sister 1 Sister 2 Social History Tobacco Use Types Packs/Day Years Used Date Smoking Tobacco: Every Day Cigarettes Passive Smoke Exposure: Current Smokeless Tobacco: Never Tobacco Cessation:Ready to Q uit: No; Counseling Given: No Comments:Smokes 1 pack of cigarettes per day Alcohol Use Standard Drinks/Week Comments No 0 (1 standard drink = 0.6 oz pur e alcohol) PHQ-2 Answer Date Recorded Patient Health Questionnaire-2 Score 0 06/15/2024 Comments Unknown Sex and Gender Information Value Date Recorded Sex Assigned at Not on file Legal Sex Female 6:16 PM EDT Gender Identity Not on file Sexual Orientation Not on file Last Filed Vital Signs Vital Sign Reading Time Taken Comments Blood Pressure 106/73 06/15/2024 2:40 PM EDT Pulse 100 06/15/2024 2:40 PM EDT Temperature 36.4 C (97.5 F) 04/25/2020 12:19 PM EDT Respiratory Rate 16 06/15/2024 2:40 PM EDT Oxygen Saturation 96% 06/15/2024 2:40 PM EDT Inhaled Oxygen Concentration - - Weight 78.5 kg (173 lb 1 oz) 06/15/2024 2:40 PM EDT Height 162.6 cm (5' 4 ) 06/15/2024 2:40 PM EDT Body Mass Index 29.71 06/15/2024 2:40 PM EDT Plan of Treatment Upcoming Encounters Date Type Department Care Team (Late st Contact Info) Description 06/21/2025 1:00 PM EDT Appointment [facility] [address] [place] [address] 06/21/2025 2:30 PM EDT Office Visit [facility] [place] [address] [place] [id number] Fermín Joya MD [address] [place] [address] Health Maintenance Due Date Last Done Comments [facility]-HIV Screening 1972 [facility]-Hepatitis C Screening 1972 [facility]-/Child/Adol SDOH Screenings 1972 [facility]- SDOH Screenings 1990 [facility]-Adult SDOH Screenings 1990 [facility]-Hepatitis B Vaccines (1 of 3 - 19+ 3-dose series) 1991 [facility]-Pneumococcal Vaccine: 50 + Years (1 of 2 - PCV) 1991 [facility]-Pap Smear 1993 [facility]-Cervical Cancer Screening 2002 [facility]-HPV/Cotest 2002 CT Colonography 2017 Colonoscopy 2017 FIT-DNA 2017 FIT 2017 FOBT 2017 Sigmoidoscopy 2017 [facility]-Colorectal Cancer Screening 2017 [facility]-DTaP,Tdap,and Td Vaccine s (2 - Td or Tdap) 12/06/2017 12/07/2007, 11/21/1996 [facility]-Breast Cancer Screening 2022 [facility]-Zoster Vaccines (1 of 2) 2022 [id number] Vaccine (1 - season) 2024 [facility]-Influenza Vaccine (#1) 2025 [facility]-Depression Screening 06/15/2025 06/15/2024 [facility]-Obesity Intervention Completed 024, 05/20/2023 HPV Vaccines Aged Out No longer eligi ble based on patient's age to complete this topic [facility]-HIB Vaccines Aged Out No longer e ligible based on patient's age to complete this topic [facility]-Hepatitis A Vaccines Aged Out No longer eligible based on patient's age to complete this topic [facility]-IPV Vaccines Aged Out No longer e ligible based on patient's age to complete this topic [facility]-Rotavirus Vaccines Aged Out No lo nger eligible based on patient's age to complete this topic Insurance [employer]ET[employer] [facility] MEDICAID Care Teams Religion Department Chair Relationship Specialty Start Date End Date Anastasia De Luna, STEPH PCP - General 02/01/21
[2025-05-16 09:32] LABS: COC Drug Screen Collection Only
[2025-05-17 09:12] LABS: Hep A Ab, Total Negative (Negative)
[2025-05-17 10:11] LABS: Measles Antibodies, IgG >300.0 AU/mL (Immune >16.4); Mumps Abs, IgG >300.0 AU/mL (Immune >10.9); Rubella Antibodies, IgG 10.50 index (Immune >0.99)
== END ==
LOC: LAB 09:19
CPT/HCPCS: 36415; 86480; 86706; 86708; 86735; 86762; 86765; 86787

== ENCOUNTER 2025-06-26 18:35 | Emergency (ER) | payer SELFPAY ==
[2025-06-26 18:40] VITALS: BP 189/94; PULSE 81; RESP 16; TEMP 36.8; O2SAT 99; BMI 28.1
--- OUTSIDE RECORDS SUMMARY | 2025-06-26 19:39 | XMS_ITS | Clinical Summary ---
Author Organization [facility] Address [address] [place] [address] Care Team Providers Care Extension Service Agent Name Role Phone Anastasia De Luna Alexsandra CHOI Primary Care Provider Allergies No known active allergies Medications Aspirin [...] 06/15/2024 2:40 PM EDT Plan of Treatment Health Maintenance Due Date Last Done Comments [facility]-HIV Screening 1972 [facility]-Hepatitis C Screening 1972 [facility]-Infant/Child/Adol SDOH Screenings 1972 [facility]- SDOH Screenings 1990 [facility]-Adult SDOH Screenings 1990 [facility]-Hepatitis B Vaccines (1 of 3 - 19+ 3-dose series) 1991 [facility]-Pap Smear 1993 [facility]-Cervical Cancer Screening 2002 [facility]-HPV/Cotest 2002 CT Colonography 2017 Colonoscopy 2017 FIT-DNA 2017 FIT 2017 FOBT 2017 Sigmoidoscopy 2017 [facility]-Colorectal Cancer Screening 2017 [facility]-DTaP,Tdap,and Td Vaccine s (2 - Td or Tdap) 12/06/2017 12/07/2007, 11/21/1996 [facility]-Breast Cancer Screening 2022 [facility]-Pneumococcal Vaccine: 50 + Years (1 of 1 - PCV) 2022 [facility]-Zoster Vaccines (1 of 2) 2022 [id number] Vaccine (1 - season) 2025 [facility]-Influenza Vaccine (#1) 2025 [facility]-Depression Screening 06/15/2025 [...] on patient's age to complete this topic Care Teams Extension Service Agent Relationship Specialty Start Date End Date Anastasia De Luna, STEPH PCP - General 02/01/21
[2025-06-26 19:47] VITALS: PULSE 82; O2SAT 97
--- NOTE | 2025-06-26 19:47 | ED_ITS ---
Discharge Plan Disposition Patient Disposition: Home, Self-Care Prescriptions Prescriptions: New methocarbamol 500 mg tablet 500 mg PO QID PRN (Reason: muscle pain) Qty: 120 0RF lidocaine 5 % adhesive patch,medicated 1 patch topical DAILY Qty: 15 0RF Rx Instructions: leave on most painful area for up to 12 hrs No Action aspirin 81 mg tablet,delayed release (DR/EC) 81 mg PO DAILY omeprazole 40 mg capsule,delayed release(DR/EC) See Rx Instructions .ROUTE BID Qty: 180 3RF Dose Instruction: TAKE 1 CAPSULE BY MOUTH ONCE DAILY Rx Instructions: TAKE 1 CAPSULE BY MOUTH ONCE DAILY twice a day; desvenlafaxine succinate [Pristiq] 100 mg tablet extended release 24 hr 100 mg PO DAILY Qty: 30 2RF lamotrigine [Lamictal] 25 mg tablet 50 mg PO DAILY Qty: 60 2RF Rx Instructions: If you develop a rash or itching, stop the medication and call the clinic. cyclobenzaprine 10 mg tablet 10 mg PO TID PRN (Reason: muscle spasm) Qty: 30 0RF diclofenac sodium 1 % gel 4 g topical QID PRN (Reason: pain) Qty: 100 2RF Rx Instructions: apply to left side of neck. metoprolol succinate 50 mg tablet extended release 24 hr 50 mg PO BID 90 Days Qty: 180 3RF spironolactone 25 mg tablet See Rx Instructions .ROUTE .COMPLEX Qty: 90 1RF Dose Instruction: TAKE 1 TABLET BY MOUTH ONCE DAILY Rx Instructions: TAKE 1 TABLET BY MOUTH ONCE DAILY hydrochlorothiazide 12.5 mg tablet See Rx Instructions .ROUTE .COMPLEX Qty: 90 2RF Dose Instruction: TAKE 1 TABLET BY MOUTH ONCE DAILY Rx Instructions: TAKE 1 TABLET BY MOUTH ONCE DAILY atorvastatin 80 mg tablet 80 mg PO DAILY Qty: 90 3RF Referrals Follow up/Referrals: Rica Gonsales APRN [Primary Care Provider, Family Practice] - See instructions Activity Restrictions/Add. Instructions Additional Instructions/Restrictions: You are being prescribed lidocaine patches as well as methocarbamol, a muscle relaxer to help with your symptoms. If you are taking the methocarbamol, do not take the cyclobenzaprine. Encourage you to take 600 mg of ibuprofen as well as 1000 mg of Tylenol every 6 hours as needed to help with symptoms until they resolve or symptoms significantly improved. Follow-up with your primary care physician. If you develop any new or worsening symptoms, or if you become concerned for your help for any reason, return to the emergency department for evaluation. Clinical Impressions Clinical Impression: Strain of neck muscle Stand Alone Forms Stand Alone Forms: Work/School Release Print Language Print Language: [place] Citizen Discharge ED Provider: Tre Kwan General Adult HPI General Chief complaint: PAIN Stated complaint: stiff neck for more than 2 wks Time Seen by Provider: 06/26/25 19:35 Mode of Arrival: Ambulatory Source of Information: Patient Description of Symptoms (Recalled from ER Triage Doc. by RN): patient presents to the ED for left sided neck pain that has been occuring for 3 weeks now. anthony wen has a hard time with range of motion. History of Present Illness HPI narrative: Caroline Delaney is a 55y female who presents to the emergency department for complaints of left-sided neck pain and stiffness over the last 3 weeks. Patient states that 3 weeks ago, she woke up with pain in the left side of her neck. She states that the pain is worsened when she rotates her head to the left and sometimes when she rotates her head to the right. She was seen at urgent treatment center was diagnosed with a muscle strain and was put on Flexeril, however this makes her sleepy and she has not been taking it. She does report intermittently taking Tylenol and ibuprofen and this helps temporarily, however she is continue to have pain and has tried multiple pillows without relief. She denies any midline neck pain. She denies any trauma. She denies any fevers. Related Data Home Medications ?Medication ?Instructions ?Recorded ?Confirmed aspirin 81 mg tablet,delayed 81 mg PO DAILY 10/19/24 0 06/19/25 release Previous Rx's ?Medication ?Instructions ?Recorded metoprolol succinate 50 mg 50 mg PO BID 90 days #180 t abs 09/22/24 tablet,extended release 24 hr spironolactone 25 mg tablet See Rx Instructions .Route 10/04/24 .COMPLEX #90 tabs omeprazole 40 mg capsule,delayed See Rx Instructions . Route BID 10/19/24 release #180 caps hydrochlorothiazide 12.5 mg tablet See Rx Instructions .Route 06/07/25 .COMPLEX #90 tabs cyclobenzaprine 10 mg tablet 10 mg PO TID PRN muscle s pasm #30 06/10/25 tabs diclofenac sodium 1 % topical gel 4 g topical QID PRN pain #100 grams 06/10/25 atorvastatin 80 mg tablet 80 mg PO DAILY #90 tabs 05/23 11/15 desvenlafaxine succinate 100 mg 100 mg PO DAILY #30 ta bs 06/19/25 tablet,extended release 24 hr (Pristiq) lamotrigine 25 mg tablet (Lamictal) 50 mg (2 x 25 mg) PO DAILY #60 tabs 06/19/25 lidocaine 5 % topical patch 1 patch topical DAILY #15 ea 06/26/25 methocarbamol 500 mg tablet 500 mg PO QID PRN muscle p ain #120 06/26/25 tabs Allergies Allergy/AdvReac Type Severity Reaction Status Date / Time No Known Allergies Allergy Verified 06/19/25 10:05 [facility] Disclaimer: The information contained in this section may have been updated after the patient was seen, as this information can be updated by other users. Medical History Low blood pressure Fatigue Dizziness Diastolic dysfunction Viral syndrome Dental abscess Strep throat Acute bacterial bronchitis Influenza Hypertension Anxiety Atypical angina Abnormal cardiovascular stress test Abnormal electrocardiography Tobacco dependence syndrome RLS (restless legs syndrome) Sinus tachycardia Edema Ex-smoker for less than 1 year Dyspnea HLD (hyperlipidemia) HHD (hypertensive heart disease) Carotid artery disease Surgical History History of cardiac cath History of salpingectomy Family History Father Alcoholism Coronary artery disease Mother Diabetes FHx: mental illness Anxiety Hyperlipidemia Sister FHx: mental illness Depression and anxiety Brother FHx: mental illness Depression and anxiety. Social History Smoking Status: Never smoker second hand exposure: No alcohol intake: never substance use type: denies use current occupational status: other Travel in the last 8 weeks?: Inside the [place] household members: children and other housing: house current occupational exposures/hazards: No caffeine: Yes Have you lived/traveled outside [place] in past 30 days?: No Contact w/someone who lives/traveled outside US past 30 days?: No Exposure to someone with infectious disease in past 14 days?: No Do you have a fever (greater than 100.4 F or 38 C)?: No Have you tested positive for COVID-19?: No Exposed to someone with COVID-19 in past 14 days?: No Do you have a sore throat?: No Do you have a cough?: No Do you have any weakness?: No Do you have any diarrhea?: No Are you experiencing any unusual bleeding?: No Do you have any muscle aches/pain?: No Do you have any abdominal pain?: No Are you experiencing loss of taste or smell?: No Other Medical History Have you received the Flu Vaccine for this season: No Have you received the Pneumonia Vaccine: No ROS Obtained: Yes Systems reviewed as appropriate & no additional complaints except as documented Physical Exam General General appearance: alert and in no apparent distress Head Head exam: atraumatic Eye Eye exam: Present normal appearance ENT ENT exam: Present normal external ear exam Neck Neck exam: Present full ROM and tenderness (left sided cervical paraspinal tenderness, pinpoint pain at the base of the trapezius on the left. No midline cervical tenderness.) Chest Chest inspection: Present symmetric chest wall rise Respiratory Respiratory exam: Present normal lung sounds bilaterally; Absent respiratory distress, wheezes or stridor Cardiovascular Cardiovascular exam: Present regular rate and normal rhythm Abdominal Exam Abdominal exam: Present soft; Absent tenderness or guarding Extremities Exam Extremities exam: Present normal inspection Back Exam Back exam: Present normal inspection Neurological Exam Neurological exam: Present alert and oriented X3 Psychiatric Psychiatric exam: Present normal affect Skin Skin exam: Present warm and dry Medical Decision Making Medical Records Screening: Per USPSTF and CDC recommendations, given the prevalence of disease in our region, it is our hospital?s policy to screen for HIV and viral Hepatitis for all patients aged 18 and over and those with ongoing risk factors. Marky Inquiry Pt receiving controlled substance: No Vital Signs: 06/26/25 18:40 06/26/25 19:47 06/26/25 19:59 Temperature 98.2 F Temperature Source Oral Pulse Rate 82 Pulse Rate [Right Radial] 81 Respiratory Rate 16 Blood Pressure 160/95 H Blood Pressure [Right Arm] 189/94 H Blood Pressure Mean 116 Blood Pressure Mean [Right Arm] 125 Blood Pressure Source [Right Arm] Automatic Cuff Blood Pressure Position [Right Arm] Sitting 02 Sat by Pulse Oximetry 99 97 Oxygen Delivery Method Room Air 06/26/25 19:59 Temperature Temperature Source Pulse Rate 71 Pulse Rate [Right Radial] Respiratory Rate Blood Pressure Blood Pressure [Right Arm] Blood Pressure Mean Blood Pressure Mean [Right Arm] Blood Pressure Source [Right Arm] Blood Pressure Position [Right Arm] 02 Sat by Pulse Oximetry 97 Oxygen Delivery Method Orders (Tests/Meds): ED MEDICATIONS Generic Name Dose Route Start Last Admin Trade Name Freq PRN Reason Stop Dose Admin Lidocaine 1 each 06/26/25 20:01 Lidocaine 5% Transdermal Patch TD 06/26/25 20:02 ONCE ONE Discontinued Medications Generic Name Dose Route Start Last Admin Trade Name Freq PRN Reason Stop Dose Admin Acetaminophen 1,000 mg 06/26/25 19:43 06/26/25 19:54 Acetaminophen 500mg Tab PO 06/26/25 19:44 1,000 mg ONCE ONE Administration Ketorolac Tromethamine 15 mg 06/26/25 19:43 06/26/25 19:53 Ketorolac 15mg/Ml Vial IM 06/26/25 19:44 15 mg ONCE ONE Administration Lidocaine HCl 20 ml 06/26/25 19:43 06/26/25 19:52 Lidocaine 1% 20ml Mdv SUBCUT 06/26/25 19:44 20 ml ONCE ONE Administration Medical Decision Narrative: Caroline Delaney is a 55y female who presents to the emergency department for complaints of left-sided neck pain and stiffness over the last 3 weeks. Patient states that 3 weeks ago, she woke up with pain in the left side of her neck. She states that the pain is worsened when she rotates her head to the left and sometimes when she rotates her head to the right. She was seen at urgent treatment center was diagnosed with a muscle strain and was put on Flexeril, however this makes her sleepy and she has not been taking it. She does report intermittently taking Tylenol and ibuprofen and this helps temporarily, however she is continue to have pain and has tried multiple pillows without relief. She denies any midline neck pain. She denies any trauma. She denies any fevers. On arrival, patient is hypertensive but hemodynamically stable. She is alert and oriented. She has no midline cervical spine tenderness or step-offs. She has tenderness over the left trapezius muscle distribution with pinpoint tenderness at the base of the left trapezius near the shoulder. She is able to range her neck, however it is limited looking to the left secondary to pain. I have low concern for any cervical spine pathology. Her symptomatology is most consistent with a muscle strain given the distribution of her symptoms and the fact that it is temporary relieved with anti-inflammatories. Will administer 15 mg IM Toradol, 1000 mg oral Tylenol. Will also perform trigger point injection with 1% lidocaine at the base of the left trapezius. Patient is amenable to this plan. I do not feel that any imaging of the cervical spine or neck is indicated at this time as her pain is not over bony prominence and does not follow a vascular distribution. I do not feel that laboratory studies would change ED management at this time. On reassessment, patient remains in stable condition and had improvement of her pain and increased range of motion of her neck. Over the next several days, I encouraged her to continue to take Tylenol and ibuprofen to help with symptoms. Will also prescribe Robaxin as she has been taking Flexeril and has not been able to tolerate it. I instructed her to stop taking the Flexeril if she is taking Robaxin. I encouraged her to follow-up with her primary care physician. Will also prescribe lidocaine patches for her to take at home. Return pr ecautions were given. All questions were answered. She demonstrated understanding and was in agreement this plan. She was then discharged from the emergency department in stable condition. Critical Care Critical Care Time Critical Care Time: No
[2025-06-26] MEDS: LIDOCAINE 1% 20ML MDV 20 ML SUBCUT (19:52)
[2025-06-26] MEDS: KETOROLAC 15MG/ML VIAL 15 MG IM (19:53)
[2025-06-26] MEDS: ACETAMINOPHEN 500MG TAB 1000 MG PO (19:54)
[2025-06-26 19:59] VITALS: BP 160/95; PULSE 71; O2SAT 97
[2025-06-26 20:00] VITALS: BP 158/94; PULSE 67; O2SAT 97
[2025-06-26] MEDS: LIDOCAINE 5% TRANSDERMAL PATCH 1 EACH TD (20:12)
[2025-06-26 20:19] VITALS: BP 158/94; PULSE 67; RESP 18; TEMP 36.8; O2SAT 98
== END 2025-06-26 20:20 | disposition home or self-care (01) ==
PROVIDERS: Emergency Provider Student in an Organized Health Care Education/Training Program; PCP Family Medicine
DX: S16.1XXA Strain of muscle, fascia and tendon at neck level, initial encounter (principal); X58.XXXA Exposure to other specified factors, initial encounter
CPT/HCPCS: 96372; 99283; 99284; J1885; J2003